=== PATIENT | female | born 1980 | race African-American/Black ===

== ENCOUNTER 2016-12-10 04:18 | Emergency (ER) | payer BC ==
--- NOTE | 2016-12-10 07:26 | ER Document Report ---
ED General - General Chief Complaint: Flu Symptoms Stated Complaint: POSSIBLE FLU SYMPTOMS TRAVEL OUTSIDE OF THE [place] IN LAST 30 DAYS: No - HPI Patient complains to provider of: cough dizziness feeling unwell Notes: Patient coming in for cough a dizziness feeling unwell muscle aches ongoing for the last week. Patient states he is a diabetic and also has ran out of her metformin. Patient denies any recent antibiotics denies any recent travel. Patient denies any sick contacts. Otherwise patient states that she's been drinking plenty water to stay hydrated. Patient states that she has been taking Mucinex at home for her treatment also states she has been using albuterol that she has a home for her cough - Related Data Allergies/Adverse Reactions: No Known Allergies Allergy (Verified 10/11/16 07:16) Past Medical History - Social History Smoking Status: Never Smoker Chew tobacco use (# tins/day): No Frequency of alcohol use: Occasional Drug Abuse: None Family History: Arthritis, CVA, DM, Hypertension, Malignancy Patient has suicidal ideation: No Patient has homicidal ideation: No - Past Medical History Cardiac Medical History: Reports: Hx Hypertension - NO MEDS Endocrine Medical History: Reports: Hx Diabetes Mellitus Type 2 - BS HIGH WHEN SHE GOT A STEROID SHOT Renal/ Medical History: Denies: Hx Peritoneal Dialysis Musculoskeltal Medical History: Reports Hx Musculoskeletal Deformity, Reports Hx Musculoskeletal Trauma Traumatic Medical History: Reports: Hx Fractures - Nose Surgical Hx: Negative - Immunizations Hx Diphtheria, Pertussis, Tetanus Vaccination: No Review of Systems - Review of Systems Constitutional: Malaise EENT: No symptoms reported Cardiovascular: No symptoms reported Respiratory: Cough Gastrointestinal: No symptoms reported Genitourinary: No symptoms reported Female Genitourinary: No symptoms reported Musculoskeletal: No symptoms reported Skin: No symptoms reported Hematologic/Lymphatic: No symptoms reported Neurological/Psychological: No symptoms reported -: Yes All other systems reviewed and negative Physical Exam - Vital signs Vitals: Temp Pulse Resp BP Pulse Ox 97.9 F 93 20 154/81 H 99 12/10/16 04:23 12/10/16 04:23 12/10/16 04:23 12/10/16 04:23 12/10/16 04:23 Interpretation: Normal - General General appearance: Appears well, Alert - HEENT Head: Normocephalic, Atraumatic Eyes: Normal Pupils: PERRL - Respiratory Respiratory status: No respiratory distress Chest status: Nontender Breath sounds: Normal Chest palpation: Normal - Cardiovascular Rhythm: Regular Heart sounds: Normal auscultation Murmur: No - Abdominal Inspection: Normal Distension: No distension Bowel sounds: Normal Tenderness: Nontender Organomegaly: No organomegaly - Back Back: Normal, Nontender - Extremities General upper extremity: Normal inspection, Nontender, Normal color, Normal ROM , Normal temperature General lower extremity: Normal inspection, Nontender, Normal color, Normal ROM , Normal temperature, Normal weight bearing. No: Ken's sign - Neurological Neuro grossly intact: Yes Cognition: Normal Orientation: AAOx4 [place] Coma Scale Eye Opening: Spontaneous Mimi Coma Scale Verbal: Oriented [place] Coma Scale Motor: Obeys Commands Mimi Coma Scale Total: 15 Speech: Normal Motor strength normal: LUE, RUE, LLE, RLE Sensory: Normal - Psychological Associated symptoms: Normal affect, Normal mood - Skin Skin Temperature: Warm Skin Moisture: Dry Skin Color: Normal Course - Re-evaluation Re-evalutation: 12/10/16 07:43 Patient symptoms are consistent with a viral illness. Patient will be given albuterol at her request and a refill of her metformin as that she is all. Patient was encouraged to follow-up with her primary care physician. Patient will be discharged home - Vital Signs Vital signs: Temp Pulse Resp BP Pulse Ox 97.9 F 93 20 154/81 H 99 12/10/16 04:23 12/10/16 04:23 12/10/16 04:23 12/10/16 04:23 12/10/16 04:23 Discharge - Discharge Clinical Impression: Diabetes, Viral syndrome Condition: Good Disposition: HOME, SELF-CARE Instructions: Viral Syndrome ([facility]) Additional Instructions: Please make sure that you're drinking plenty water to stay hydrated. Take your home medication as prescribed. He may use your albuterol at home 1 treatment are 2 puffs every 4 hours for any shortness of breath. Also prescribe you a cough medication. Discussed medication may also be available [id number]. Your symptoms will more likely linger for another 4-5 days. Please follow-up with your primary care physician or physicians provided or the clinic provided. Prescriptions: Albuterol Sulfate [Albuterol Sulfate 2.5mg/3 mL] 2.5 mg IH Q4 #30 ml Metformin HCl [Glucophage] 1,000 mg PO DAILY #30 tablet Forms: Return to Work
[2016-12-10 08:15] VITALS: BP 142/77
== END 2016-12-10 08:15 | disposition home or self-care (01) ==
LOC: ER 04:18
DX: E11.9 Type 2 diabetes mellitus without complications (principal); B34.9 Viral infection, unspecified; R05 Cough; R42 Dizziness and giddiness
CPT/HCPCS: 82962; 87804; 99283

== ENCOUNTER 2017-04-29 21:25 | Emergency (ER) | payer BC ==
--- NOTE | 2017-04-29 22:18 | ER Document Report ---
ED Medical Screen (RME) - General Chief Complaint: Rectal Bleeding Stated Complaint: RECTAL BLEEDING/ABDOMINAL PAIN Time Seen by Provider: 04/29/17 22:14 Mode of Arrival: Ambulatory Information source: Patient Notes: 37 yo female presents to ed for rectal bleeding that started tonight when she was getting ready to go to work. She states she was sitting on the bed putting on her socks and when she got up the bed was covered in blood. She went to the back and took her close follow-up to find it where she was bleeding and found that she was bleeding from her rectum. She states she does not have hemorrhoids but she has in the past and that even they did not bleed. He states since she has been here in the emergency room she developed a headache with abdominal cramping and nausea states she also feels cold. He states the abdominal cramping is getting a little better. I have greeted and performed a rapid initial assessment of this patient. A comprehensive ED assessment and evaluation of the patient, analysis of test results and completion of medical decision making process will be conducted by an additional ED providers. TRAVEL OUTSIDE OF THE [place] IN LAST 30 DAYS: No - Related Data Allergies/Adverse Reactions: No Known Allergies Allergy (Verified 10/11/16 07:16) Past Medical History - Past Medical History Cardiac Medical History: Reports: Hx Hypertension - NO MEDS Endocrine Medical History: Reports: Hx Diabetes Mellitus Type 2 - BS HIGH WHEN SHE GOT A STEROID SHOT Renal/ Medical History: Denies: Hx Peritoneal Dialysis Musculoskeltal Medical History: Reports Hx Musculoskeletal Deformity, Reports Hx Musculoskeletal Trauma Traumatic Medical History: Reports: Hx Fractures - Nose - Immunizations Hx Diphtheria, Pertussis, Tetanus Vaccination: No Physical Exam - Vital signs Vitals: Temp Pulse Resp BP Pulse Ox 99.0 F 82 18 167/92 H 98 04/29/17 21:31 04/29/17 21:31 04/29/17 21:31 04/29/17 21:31 04/29/17 21:31 Course - Vital Signs Vital signs: Temp Pulse Resp BP Pulse Ox 99.0 F 82 18 167/92 H 98 04/29/17 21:31 04/29/17 21:31 04/29/17 21:31 04/29/17 21:31 04/29/17 21:31
[2017-04-29 22:49] LABS: ABSOLUTE BASOPHILS # (AUTO) 0.1 10^3/uL (0.0-0.2); ABSOLUTE EOSINOPHILS # (AUTO) 0.1 10^3/uL (0.0-0.6); ABSOLUTE LYMPHOCYTES (AUTO) 2.3 10^3/uL (0.5-4.7); ABSOLUTE MONOCYTES (AUTO) 0.6 10^3/uL (0.1-1.4); ABSOLUTE NEUT (AUTO) 6.8 10^3/uL (1.7-8.2); EOSINOPHILS % (AUTO) 0.8 % (0-6); HEMATOCRIT 41.2 % (36.0-47.0); HEMOGLOBIN 13.5 g/dL (12.0-15.5); HGB HCT DIFFERENCE -0.7; LYMPHOCYTES % (AUTO) 23.3 % (13-45); MEAN CORPUSCULAR HEMOGLOBIN 30.4 pg (27.0-33.4); MEAN CORPUSCULAR HGB CONC 32.9 g/dL (32.0-36.0); MEAN CORPUSCULAR VOLUME 92 fl (80-97); MONOCYTES % (AUTO) 6.1 % (3-13); RED BLOOD COUNT 4.46 10^6/uL (3.72-5.28); RED CELL DISTRIBUTION WIDTH 13.6 % (11.5-14.0); SEGMENTED NEUTROPHILS % (AUTO) 68.8 % (42-78); WHITE BLOOD COUNT 9.8 10^3/uL (4.0-10.5)
[2017-04-29 23:07] LABS: ALANINE AMINOTRANSFERASE 25 U/L (9-52); ALBUMIN 4.1 g/dL (3.5-5.0); ALKALINE PHOSPHATASE 137 U/L (38-126); ANION GAP 10 (5-19); ASPARTATE AMINO TRANSFERASE 12 U/L (14-36); BILIRUBIN,DIRECT 0.3 mg/dL (0.0-0.4); BILIRUBIN,TOTAL 0.7 mg/dL (0.2-1.3); BLOOD UREA NITROGEN 12 mg/dL (7-20); CALCIUM 9.3 mg/dL (8.4-10.2); CARBON DIOXIDE 24 mmol/L (22-30); CHLORIDE 106 mmol/L (98-107); CREATININE RESULT 0.63 mg/dL (0.52-1.25); GLUCOSE 189 mg/dL (75-110); POTASSIUM 4.7 mmol/L (3.6-5.0); SODIUM 140.3 mmol/L (137-145); TOTAL PROTEIN 7.4 g/dL (6.3-8.2)
--- NOTE | 2017-04-30 06:18 | ER Document Report ---
ED GI Bleed / Rectal Pain - General Chief Complaint: Rectal Bleeding Stated Complaint: RECTAL BLEEDING/ABDOMINAL PAIN Time Seen by Provider: 04/29/17 22:14 Mode of Arrival: Ambulatory TRAVEL OUTSIDE OF THE [place] IN LAST 30 DAYS: No - HPI Patient complains to provider of: Bright red bld from rect. Onset: Yesterday Timing/Duration: Better Quality of pain: Cramping Severity of symptoms: Mild Pain Level: 1 Rectal bleeding: Bleeding w/o stool Associated symptoms: Abdominal pain Exacerbated by: Denies Relieved by: Denies Similar symptoms previously: No Recently seen / treated by doctor: No - Related Data Allergies/Adverse Reactions: No Known Allergies Allergy (Verified 10/11/16 07:16) Past Medical History - General Information source: Patient - Social History Smoking Status: Current Every Day Smoker Cigarette use (# per day): Yes - ppd Chew tobacco use (# tins/day): No Smoking Education Provided: Yes - less than 2 min Frequency of alcohol use: Rare Drug Abuse: None Lives with: Family Family History: Arthritis, CVA, DM, Hypertension, Malignancy Patient has suicidal ideation: No Patient has homicidal ideation: No - Past Medical History Cardiac Medical History: Reports: Hx Hypertension - NO MEDS Pulmonary Medical History: Reports: None EENT Medical History: Reports: None Neurological Medical History: Reports: None Endocrine Medical History: Reports: Hx Diabetes Mellitus Type 2 - BS HIGH WHEN SHE GOT A STEROID SHOT Renal/ Medical History: Reports: None Malignancy Medical History: Reports: None GI Medical History: Reports: None Musculoskeltal Medical History: Reports Hx Musculoskeletal Deformity, Reports Hx Musculoskeletal Trauma Skin Medical History: Reports None Psychiatric Medical History: Reports: None Traumatic Medical History: Reports: Hx Fractures - Nose Infectious Medical History: Reports: None Surgical Hx: Negative Past Surgical History: Reports: None - Immunizations Hx Diphtheria, Pertussis, Tetanus Vaccination: No Review of Systems - Review of Systems Constitutional: No symptoms reported EENT: No symptoms reported Cardiovascular: No symptoms reported Respiratory: No symptoms reported Gastrointestinal: Rectal bleeding, Last bowel movement - yesterday Genitourinary: No symptoms reported Female Genitourinary: No symptoms reported Musculoskeletal: No symptoms reported Skin: No symptoms reported Hematologic/Lymphatic: No symptoms reported Neurological/Psychological: No symptoms reported Physical Exam - Vital signs Vitals: Temp Pulse Resp BP Pulse Ox 99.0 F 82 18 167/92 H 98 04/29/17 21:31 04/29/17 21:31 04/29/17 21:31 04/29/17 21:31 04/29/17 21:31 Interpretation: Normal - General General appearance: Appears well, Alert - HEENT Head: Normocephalic, Atraumatic Eyes: Normal Pupils: PERRL - Respiratory Respiratory status: No respiratory distress Chest status: Nontender Breath sounds: Normal Chest palpation: Normal - Cardiovascular Rhythm: Regular Heart sounds: Normal auscultation Murmur: No - Abdominal Inspection: Normal Distension: No distension Bowel sounds: Normal Tenderness: Nontender Organomegaly: No organomegaly - Rectal Tenderness: Yes Stool: Heme negative Hemorrhoids: External - Back Back: Normal, Nontender - Extremities General upper extremity: Normal inspection, Nontender, Normal color, Normal ROM , Normal temperature General lower extremity: Normal inspection, Nontender, Normal color, Normal ROM , Normal temperature, Normal weight bearing. No: Ken's sign - Neurological Neuro grossly intact: Yes Cognition: Normal Orientation: AAOx4 [place] Coma Scale Eye Opening: Spontaneous Mimi Coma Scale Verbal: Oriented [place] Coma Scale Motor: Obeys Commands [place] Coma Scale Total: 15 Speech: Normal Motor strength normal: LUE, RUE, LLE, RLE Sensory: Normal - Psychological Associated symptoms: Normal affect, Normal mood - Skin Skin Temperature: Warm Skin Moisture: Dry Skin Color: Normal Course - Re-evaluation Re-evalutation: 04/30/17 06:27 Labs results with patient. Discussed need to return to ED if she has another episode where she states she is bleeding severely. Patient instructed to follow -up with gastroenterology by telephone today to schedule follow-up appointment for further evaluation. - Vital Signs Vital signs: Temp Pulse Resp BP Pulse Ox 99.0 F 81 18 153/96 H 100 04/29/17 21:31 04/29/17 22:16 04/29/17 22:16 04/29/17 22:16 04/29/17 22:16 - Laboratory Result Diagrams: 04/29/17 22:20 04/29/17 22:20 Laboratory results interpreted by me: 04/29/17 22:20 Glucose 189 H AST 12 L Alkaline Phosphatase 137 H Discharge - Discharge Clinical Impression: Rectal bleed Condition: Stable Disposition: HOME, SELF-CARE Instructions: Family Physicians / Practices Additional Instructions: Rectal Bleeding, Unclear Cause No definite cause has been found for the rectal bleeding you have experienced. Among the possible causes are internal or external hemorrhoids ( internal hemorrhoids can't be felt on the outside), an anal fissure (a crack at the anal ring), infections or inflammatory diseases of the colon, tumors or polyps, or diverticula (diverticula are outpouchings from the colon wall). To establish a cause for your bleeding (or at least make certain there is no serious problem such as a tumor), further evaluation will be necessary. This may include special X-rays, or passage of a scope up into the colon. Be sure to keep your follow-up appointment. Should you develop brisk bleeding, abdominal pain, fever, lightheadedness, or fever, call the doctor or return at once. Acetaminophen Acetaminophen may be taken for pain relief or fever control. It's much safer than aspirin, offering a wider range of "safe" dosages. It is safe during . Some brand names are Tylenol, Panadol, Datril, Anacin 3, Tempra, and Liquiprin. Acetaminophen can be repeated every four hours. The following are maximum recommended dosages: WEIGHT Dose Drops Elixir Chewable( 80mg) (LBS.) drprs=droppers tsp=teaspoon 6 40 mg .4 ml (1/2) 6-11 80 mg .8 ml (full) 1/2 tsp 1 tab 12-16 120 mg 1 1/2 drprs 3/4 tsp 1 1/2 tabs 17-23 160 mg 2 drprs 1 tsp 2 tabs 24-30 240 mg 3 drprs 1 1/2 tsp 3 tabs 30-35 320 mg 2 tsp 4 tabs 36-41 360 mg 2 1/4 tsp 4 1 /2 tabs 42-47 400 mg 2 1/2 tsp 5 tabs 48-53 480 mg 3 tsp 6 tabs 54-59 520 mg 3 1/4 tsp 6 1 /2 tabs 60-64 560 mg 3 1/2 tsp 7 tabs 65-70 600 mg 3 3/4 tsp 7 1 /2 tabs 71-76 640 mg 4 tsp 8 tabs 77-82 720 mg 4 1/2 tsp 9 tabs 83-88 800 mg 5 tsp 10 tabs >89 pounds or adults 650 mg to 900 mg Acetaminophen can be repeated every four hours. Maximum daily dose not to exceed 4000 mg. These maximum recommended dosages are slightly higher than the dosages written on the product container, but these dosages are very safe and well below the toxic dosage for acetaminophen. Please follow-up by telephone with group leader semiconductor processing, Dr. Whitlock today to schedule follow up appointment to determine the cause for your bleeding. Your vital signs at your CBC or normal at this time. Your stool for occult blood was negative. FOLLOW-UP CARE: If you have been referred to a physician for follow-up care, call the physician s office for an appointment as you were instructed or within the next two days. If you experience worsening or a significant change in your symptoms, notify the physician immediately or return to the Emergency Department at any time for re-evaluation. Forms: Elevated Blood Pressure, Return to Work, Smoking Cessation Education Referrals: [facility] [Provider Group] - Follow up as needed PITA WHITLOCK MD [ACTIVE STAFF] - 04/30/17
[2017-04-30] MEDS ORDERED: ACETAMINOPHEN 325 MG TABLET PO ONE (06:30)
[2017-04-30 07:02] VITALS: BP 133/76
== END 2017-04-30 07:02 | disposition home or self-care (01) ==
LOC: ER 21:25
DX: K62.5 Hemorrhage of anus and rectum (principal); R10.9 Unspecified abdominal pain; F17.210 Nicotine dependence, cigarettes, uncomplicated; K64.4 Residual hemorrhoidal skin tags
CPT/HCPCS: 36415; 80053; 82272; 84703; 85025; 86850; 86870; 86900; 86901; 99283

== ENCOUNTER 2017-10-03 04:41 | Emergency (ER) | payer BC ==
[2017-10-03 05:04] VITALS: BP 153/93
[2017-10-03] MEDS ORDERED: NORMAL SALINE 1000 ML 1,000 ML IV ONE (06:06)
[2017-10-03 06:21] LABS: APPEARANCE,URINE CLEAR; BILIRUBIN,URINE NEGATIVE (NEGATIVE); GLUCOSE, URINE >=500 mg/dL (NEGATIVE); KETONES,URINE NEGATIVE (NEGATIVE); LEUKOCYTE ESTERASE,URINE NEGATIVE (NEGATIVE); NITRITE,URINE NEGATIVE (NEGATIVE); PROTEIN,URINE NEGATIVE (NEGATIVE); URINE SPECIFIC GRAVITY 1.016; UROBILINOGEN,URINE NEGATIVE mg/dL (<2.0)
--- NOTE | 2017-10-03 06:24 | ER Document Report ---
ED General - General Chief Complaint: Abdominal Pain Stated Complaint: DIZZINESS,NAUSEA Time Seen by Provider: 10/03/17 06:04 Notes: 37 years old female presents today with multiple complaints, starting with dysuria, when she wipes notes some blood in the toilet tissue, after urinating. She also have constipated for a long time, general malaise, headache which was relieved by 2 doses of Tylenol. Denies any earache sore throat but was congested and cough. Nauseous but no vomiting. No diarrhea TRAVEL OUTSIDE OF THE [place] IN LAST 30 DAYS: No - Related Data Allergies/Adverse Reactions: No Known Allergies Allergy (Verified 10/11/16 07:16) Home Medications: Current Home Medications Metformin HCl [Metformin HCl ER] 500 mg PO BID 10/03/17 [History] Past Medical History - Social History Smoking Status: Current Every Day Smoker Frequency of alcohol use: None Drug Abuse: None Family History: Arthritis, CVA, DM, Hypertension, Malignancy Patient has suicidal ideation: No Patient has homicidal ideation: No - Past Medical History Cardiac Medical History: Reports: Hx Hypertension - NO MEDS Endocrine Medical History: Reports: Hx Diabetes Mellitus Type 2 - BS HIGH WHEN SHE GOT A STEROID SHOT Renal/ Medical History: Denies: Hx Peritoneal Dialysis Musculoskeltal Medical History: Reports Hx Musculoskeletal Deformity, Reports Hx Musculoskeletal Trauma Traumatic Medical History: Reports: Hx Fractures - Nose - Immunizations Hx Diphtheria, Pertussis, Tetanus Vaccination: No Review of Systems - Review of Systems Notes: REVIEW OF SYSTEMS: CONSTITUTIONAL : Denies fever, chills, or sweats. Denies recent illness. EENT: Denies eye, ear, throat, or mouth pain or symptoms. Denies nasal or sinus congestion or discharge. Denies throat, tongue, or mouth swelling or difficulty swallowing. CARDIOVASCULAR: Denies chest pain. Denies palpitations or racing or irregular heart beat. Denies ankle edema. RESPIRATORY: Denies cough, cold, or chest congestion. Denies shortness of breath, difficulty breathing, or wheezing. GASTROINTESTINAL: Denies abdominal pain or distention. Denies nausea, vomiting , or diarrhea. Denies blood in vomitus, stools, or per rectum. Denies black, tarry stools. Denies constipation. GENITOURINARY: Denies difficulty urinating, painful urination, burning, frequency, blood in urine, or discharge. FEMALE GENITOURINARY: Denies vaginal bleeding, heavy or abnormal periods, irregular periods. Denies vaginal discharge or odor. MUSCULOSKELETAL: Denies back or neck pain or stiffness. Denies joint pain or swelling. SKIN: Denies rash, lesions or sores. HEMATOLOGIC : Denies easy bruising or bleeding. LYMPHATIC: Denies swollen, enlarged glands. NEUROLOGICAL: Denies confusion or altered mental status. Denies passing out or loss of consciousness. Denies dizziness or lightheadedness. Denies headache. Denies weakness or paralysis or loss of use of either side. Denies problems with gait or speech. Denies sensory loss, numbness, or tingling. Denies seizures. PSYCHIATRIC: Denies anxiety or stress. Denies depression, suicidal ideation, or homicidal ideation. ALL OTHER SYSTEMS REVIEWED AND NEGATIVE. PHYSICAL EXAMINATION: GENERAL: Well-appearing, well-nourished and in no acute distress. HEAD: Atraumatic, normocephalic. EYES: Pupils equal round and reactive to light, extraocular movements intact, conjunctiva are normal. ENT: Nares patent, oropharynx clear without exudates. Moist mucous membranes. NECK: Normal range of motion, supple without lymphadenopathy LUNGS: Breath sounds clear to auscultation bilaterally and equal. No wheezes rales or rhonchi. HEART: Regular rate and rhythm without murmurs ABDOMEN: Soft, nontender, nondistended abdomen. No guarding, no rebound. No masses appreciated. Female : deferred Musculoskeletal: Normal range of motion, no pitting or edema. No cyanosis. NEUROLOGICAL: Cranial nerves grossly intact. Normal speech, normal gait. Normal sensory, motor exams PSYCH: Normal mood, normal affect. SKIN: Warm, Dry, normal turgor, no rashes or lesions noted. Dictation was performed using [employer] voice recognition software Physical Exam - Vital signs Vitals: Temp Pulse Resp BP Pulse Ox 98.6 F 87 17 153/93 H 98 10/03/17 05:02 10/03/17 05:02 10/03/17 05:02 10/03/17 05:02 10/03/17 05:02 Course - Re-evaluation Re-evalutation: 10/03/17 07:13 KUB shows large amount of fecal material, urine was positive for moderate amount of blood, urinary tract infection. This was explained to the patient. Patient was hydrated with IV normal saline 2. - Vital Signs Vital signs: Temp Pulse Resp BP Pulse Ox 98.6 F 87 17 153/93 H 98 10/03/17 05:02 10/03/17 05:02 10/03/17 05:02 10/03/17 05:02 10/03/17 05:02 - Laboratory Result Diagrams: 10/03/17 06:20 10/03/17 06:20 Laboratory results interpreted by me: 10/03/17 10/03/17 10/03/17 05:02 06:00 06:20 Sodium 136.4 L Glucose 247 H POC Glucose 260 H Alkaline Phosphatase 139 H Urine Glucose (UA) >=500 H Urine Blood MODERATE H Discharge - Discharge Clinical Impression: Dehydration UTI (urinary tract infection) Qualifiers: Urinary tract infection type: acute cystitis Hematuria presence: with hematuria Qualified Code(s): N30.01 - Acute cystitis with hematuria Constipation Qualifiers: Constipation type: slow transit constipation Qualified Code(s): K59.01 - Slow transit constipation Condition: Fair Disposition: HOME, SELF-CARE Instructions: Urinary Tract Infection ([facility]), Abdominal Pain ([facility]), Constipation ([facility]) Prescriptions: Ciprofloxacin HCl [Cipro 500 mg Tablet] 500 mg PO BID #20 tablet Lactulose 20 gm PO BID #120 ml
[2017-10-03 06:28] LABS: ABSOLUTE EOSINOPHILS # (AUTO) 0.1 10^3/uL (0.0-0.6); ABSOLUTE LYMPHOCYTES (AUTO) 3.4 10^3/uL (0.5-4.7); ABSOLUTE MONOCYTES (AUTO) 0.6 10^3/uL (0.1-1.4); BASOPHILS % (AUTO) 0.6 % (0-2); EOSINOPHILS % (AUTO) 1.6 % (0-6); HEMATOCRIT 41.1 % (36.0-47.0); HEMOGLOBIN 14.4 g/dL (12.0-15.5); HGB HCT DIFFERENCE 2.1; LYMPHOCYTES % (AUTO) 41.7 % (13-45); MEAN CORPUSCULAR HEMOGLOBIN 31.4 pg (27.0-33.4); MEAN CORPUSCULAR VOLUME 90 fl (80-97); MONOCYTES % (AUTO) 7.7 % (3-13); RED BLOOD COUNT 4.58 10^6/uL (3.72-5.28); RED CELL DISTRIBUTION WIDTH 13.2 % (11.5-14.0); SEGMENTED NEUTROPHILS % (AUTO) 48.4 % (42-78); WHITE BLOOD COUNT 8.2 10^3/uL (4.0-10.5)
[2017-10-03 06:39] LABS: ALANINE AMINOTRANSFERASE 21 U/L (9-52); ALBUMIN 4.3 g/dL (3.5-5.0); ALKALINE PHOSPHATASE 139 U/L (38-126); ANION GAP 9 (5-19); ASPARTATE AMINO TRANSFERASE 14 U/L (14-36); BILIRUBIN,DIRECT 0.2 mg/dL (0.0-0.4); BILIRUBIN,TOTAL 0.8 mg/dL (0.2-1.3); BLOOD UREA NITROGEN 8 mg/dL (7-20); CALCIUM 9.8 mg/dL (8.4-10.2); CARBON DIOXIDE 26 mmol/L (22-30); CHLORIDE 101 mmol/L (98-107); CREATININE RESULT 0.67 mg/dL (0.52-1.25); GLUCOSE 247 mg/dL (75-110); POTASSIUM 4.1 mmol/L (3.6-5.0); SODIUM 136.4 mmol/L (137-145); TOTAL PROTEIN 7.6 g/dL (6.3-8.2)
[2017-10-03] MEDS ORDERED: CIPROFLOXACIN HCL 500 MG TABLET PO ONE (07:12)
--- NOTE | 2017-10-03 07:26 | RADIOLOGY REPORT (SQ) ---
EXAM DESCRIPTION: KUB/ABDOMEN (SINGLE VIEW) CLINICAL HISTORY: 37 years, Female, abdominal pain COMPARISON: CTA chest, March 14, 2016. FINDINGS: Intestinal gas pattern is normal. No dilated bowel. No suspicious calcification. Transitional lumbosacral vertebral body. IMPRESSION: No acute findings. 2011 [email or web address]- All Rights Reserved
[2017-10-03 08:37] LABS: APPEARANCE,URINE CLEAR; BILIRUBIN,URINE NEGATIVE (NEGATIVE); GLUCOSE, URINE 50 mg/dL (NEGATIVE); KETONES,URINE NEGATIVE (NEGATIVE); LEUKOCYTE ESTERASE,URINE NEGATIVE (NEGATIVE); NITRITE,URINE NEGATIVE (NEGATIVE); PROTEIN,URINE NEGATIVE (NEGATIVE); UROBILINOGEN,URINE NEGATIVE mg/dL (<2.0)
== END 2017-10-03 09:05 | disposition home or self-care (01) ==
LOC: ER 04:41
DX: K59.01 Slow transit constipation (principal); N30.01 Acute cystitis with hematuria; E86.0 Dehydration; R30.0 Dysuria; R53.81 Other malaise; R51 Headache; R05 Cough; R11.0 Nausea; I10 Essential (primary) hypertension; F17.200 Nicotine dependence, unspecified, uncomplicated
CPT/HCPCS: 99284; 96360; 36415; 82962; 85025; 81025; 80053; 81001; 74000; J7030

== ENCOUNTER 2017-11-11 08:32 | Emergency (ER) | payer BC ==
--- NOTE | 2017-11-11 09:38 | ER Document Report ---
ED General - General Mode of Arrival: Ambulatory Information source: Patient TRAVEL OUTSIDE OF THE [place] IN LAST 30 DAYS: No <BEBETO AMATO - Last Filed: 11/11/17 10:28> <MARYLUBRENDON Seals - Last Filed: 11/12/17 20:34> - General Chief Complaint: Shortness Of Breath Stated Complaint: SHORTNESS OF BREATH Time Seen by Provider: 11/11/17 09:22 Notes: Patient is a 37 year old female with a history of Type 2 Diabetes presents to the emergency department complaining of multiple symptoms including fatigue, shortness of breath, an intermittent sharp abdominal pain and urinary frequency onset 5 days ago. Patient states that she has been extremely fatigued and has been unable to get out of bed or stay awake. Patient also states she began to have a sharp left shoulder pain 5 days ago. Patient states she is unsure if she could have caused injury to her shoulder while at work. Patient denies cough, fevers, diarrhea, vomiting, urinary burning, or sore throat. (BEBETO AMATO) - Related Data Allergies/Adverse Reactions: No Known Allergies Allergy (Verified 11/11/17 08:36) Past Medical History - General Information source: Patient - Social History Smoking Status: Unknown if Ever Smoked Occupation: [employer] Family History: Arthritis, CVA, DM, Hypertension, Malignancy - Past Medical History Cardiac Medical History: Reports: Hx Hypertension - NO MEDS Endocrine Medical History: Reports: Hx Diabetes Mellitus Type 2 - BS HIGH WHEN SHE GOT A STEROID SHOT Musculoskeltal Medical History: Reports Hx Musculoskeletal Deformity, Reports Hx Musculoskeletal Trauma Traumatic Medical History: Reports: Hx Fractures - Nose - Immunizations Hx Diphtheria, Pertussis, Tetanus Vaccination: No <BEBETO AMATO - Last Filed: 11/11/17 10:28> Review of Systems - Review of Systems Constitutional: See HPI, Other - Fatigue EENT: No symptoms reported Cardiovascular: No symptoms reported Respiratory: No symptoms reported Gastrointestinal: See HPI, Abdominal pain Genitourinary: No symptoms reported Female Genitourinary: No symptoms reported Musculoskeletal: No symptoms reported Skin: No symptoms reported Hematologic/Lymphatic: No symptoms reported Neurological/Psychological: No symptoms reported -: Yes All other systems reviewed and negative <BEBETO AMATO - Last Filed: 11/11/17 10:28> Physical Exam <BEBETO AMATO - Last Filed: 11/11/17 10:28> <BRENDON VALERO Arnel - Last Filed: 11/12/17 20:34> - Vital signs Vitals: Temp Pulse Resp BP Pulse Ox 97.8 F 97 16 139/79 H 97 11/11/17 08:37 11/11/17 08:37 11/11/17 08:37 11/11/17 08:37 11/11/17 08:37 - Notes Notes: GENERAL: Alert, interacts well. No acute distress. HEAD: Normocephalic, atraumatic. EYES: Pupils equal, round, and reactive to light. Extraocular movements intact. ENT: Oral mucosa moist, tongue midline. NECK: Full range of motion. Supple. Trachea midline. LUNGS: Clear to auscultation bilaterally, no wheezes, rales, or rhonchi. No respiratory distress. HEART: Regular rate and rhythm. No murmurs, gallops, or rubs. ABDOMEN: Soft, non-tender. Non-distended. Bowel sounds present in all 4 quadrants. EXTREMITIES: Moves all 4 extremities spontaneously. NEUROLOGICAL: Alert and oriented x3. Normal speech. PSYCH: Normal affect, normal mood. SKIN: Warm, dry, normal turgor. No rashes or lesions noted. (BEBETO AMAOT) Course - Laboratory Result Diagrams: 11/11/17 10:10 11/11/17 10:10 <BEBETO AMATO - Last Filed: 11/11/17 10:28> - Laboratory Result Diagrams: 11/11/17 10:10 11/11/17 10:10 - EKG Interpretation by Tn EKG shows normal: Sinus rhythm Rate: Normal Rhythm: NSR <BRENDON VALERO Arnel - Last Filed: 11/12/17 20:34> - Re-evaluation Re-evalutation: 11/11/17 09:38 DDX: Viral syndrome, influenza, upper respiratory infection, uterine abnormality, hypothyroidism, dehydration, NM Patient known diabetic on metformin with several days of fatigue and absence of vomiting or diarrhea that she has been having polyuria. She also had an episode of shoulder and scapular pain while driving from work last Saturday. We will also screen troponin and EKG. HEART score patient is low risk chest pain. we will also check basic lab work to ensure no acute abnormalities 11/11/17 09:40 11/11/17 11:16 All patient's labs within normal limits are within patient's baseline. She does have elevated blood glucose and discussed with patient need for better glycemic control including taking log over the next week and follow with her primary care physician for consideration of medication changes. Will provide a work excuse for 2 days encourage patient to take oral fluids encouraged using Tylenol or ibuprofen and reevaluation in the next 2-3 days if symptoms are not improving 11/11/17 11:33 TSH and UA no concerning findings patient will be discharged at this time (BRENDON VALERO) - Vital Signs Vital signs: Temp Pulse Resp BP Pulse Ox 98.5 F 97 26 H 115/76 98 11/11/17 12:13 11/11/17 08:37 11/11/17 12:01 11/11/17 12:00 11/11/17 12:01 - Laboratory Laboratory results interpreted by sd: 11/11/17 11/11/17 11/11/17 10:10 10:10 11:11 WBC 11.0 H Sodium 136.8 L Glucose 342 H Calcium 10.3 H Alkaline Phosphatase 128 H Urine Glucose (UA) >=500 H Urine Blood SMALL H - Diagnostic Test Radiology results interpreted by sd: 11/11/17 10:42 No acute disease on chest x-ray (BRENDON VALERO) Discharge <BEBETO AMATO - Last Filed: 11/11/17 10:28> <BRENDON VALERO - Last Filed: 11/12/17 20:34> - Discharge Condition: Good Disposition: HOME, SELF-CARE Additional Instructions: Please use her glucometer and provide a log to your family doctor within 1 week for likely adjustments to your metformin. Take Tylenol for your fatigue drink plenty of fluids and follow-up in the next 2-3 days with medical provider if symptoms are not improving. In the meantime start to take 750 mg of metformin twice a day instead of 500 mg twice a day. Forms: Return to Work Scribe Documentation - Scribe Written by Aura:: Aura Gambino, 11/11/2017 09:54 acting as scribe for :: Marylu <BEBETO AMATO - Last Filed: 11/11/17 10:28>
[2017-11-11] MEDS ORDERED: NORMAL SALINE 1000 ML 1,000 ML IV ONE (09:40)
[2017-11-11 10:23] LABS: ABSOLUTE BASOPHILS # (AUTO) 0.1 10^3/uL (0.0-0.2); ABSOLUTE EOSINOPHILS # (AUTO) 0.1 10^3/uL (0.0-0.6); ABSOLUTE LYMPHOCYTES (AUTO) 3.5 10^3/uL (0.5-4.7); ABSOLUTE MONOCYTES (AUTO) 0.7 10^3/uL (0.1-1.4); ABSOLUTE NEUT (AUTO) 6.6 10^3/uL (1.7-8.2); BASOPHILS % (AUTO) 1.1 % (0-2); EOSINOPHILS % (AUTO) 0.9 % (0-6); HEMATOCRIT 42.6 % (36.0-47.0); HEMOGLOBIN 14.2 g/dL (12.0-15.5); LYMPHOCYTES % (AUTO) 31.6 % (13-45); MEAN CORPUSCULAR HEMOGLOBIN 30.2 pg (27.0-33.4); MEAN CORPUSCULAR HGB CONC 33.3 g/dL (32.0-36.0); MEAN CORPUSCULAR VOLUME 91 fl (80-97); MONOCYTES % (AUTO) 6.4 % (3-13); PLATELET COUNT 215 10^3/uL (150-450); RED CELL DISTRIBUTION WIDTH 13.8 % (11.5-14.0); TOTAL CELLS COUNTED % (AUTO) 100 %
--- NOTE | 2017-11-11 10:31 | RADIOLOGY REPORT (SQ) ---
EXAM DESCRIPTION: CHEST SINGLE VIEW COMPLETED DATE/TIME: 11/11/2017 10:19 am REASON FOR STUDY: med clearance COMPARISON: 03/14/2016 EXAM PARAMETERS: NUMBER OF VIEWS: One view. TECHNIQUE: Single frontal radiographic view of the chest acquired. RADIATION DOSE: NA LIMITATIONS: None. FINDINGS: LUNGS AND PLEURA: No opacities, masses or pneumothorax. No pleural effusion. MEDIASTINUM AND HILAR STRUCTURES: No masses. Contour normal. HEART AND VASCULAR STRUCTURES: Heart normal in size. Normal vasculature. BONES: No acute findings. HARDWARE: None in the chest. OTHER: No other significant finding. IMPRESSION: NO ACUTE RADIOGRAPHIC FINDING IN THE CHEST. TECHNICAL DOCUMENTATION: JOB ID: [id number] [employer]- All Rights Reserved
[2017-11-11 10:46] LABS: ALANINE AMINOTRANSFERASE 21 U/L (9-52); ALBUMIN 4.2 g/dL (3.5-5.0); ALKALINE PHOSPHATASE 128 U/L (38-126); ANION GAP 10 (5-19); ASPARTATE AMINO TRANSFERASE 17 U/L (14-36); BILIRUBIN,DIRECT 0.3 mg/dL (0.0-0.4); BILIRUBIN,TOTAL 0.6 mg/dL (0.2-1.3); BLOOD UREA NITROGEN 12 mg/dL (7-20); CALCIUM 10.3 mg/dL (8.4-10.2); CARBON DIOXIDE 24 mmol/L (22-30); CHLORIDE 103 mmol/L (98-107); GLUCOSE 342 mg/dL (75-110); POTASSIUM 4.5 mmol/L (3.6-5.0); SODIUM 136.8 mmol/L (137-145); TOTAL PROTEIN 6.8 g/dL (6.3-8.2)
[2017-11-11 11:29] LABS: APPEARANCE,URINE CLEAR; BILIRUBIN,URINE NEGATIVE (NEGATIVE); COLOR,URINE YELLOW; GLUCOSE, URINE >=500 mg/dL (NEGATIVE); KETONES,URINE NEGATIVE (NEGATIVE); LEUKOCYTE ESTERASE,URINE NEGATIVE (NEGATIVE); NITRITE,URINE NEGATIVE (NEGATIVE); PROTEIN,URINE NEGATIVE (NEGATIVE); URINE SPECIFIC GRAVITY 1.032; UROBILINOGEN,URINE NEGATIVE mg/dL (<2.0)
[2017-11-11 12:12] VITALS: BP 115/76
--- NOTE | 2017-11-11 12:57 | EKG REPORT ---
SEVERITY:- NORMAL ECG - SINUS RHYTHM : Confirmed by: Artur Lopez MD 11-Nov-2017 12:56:39
== END 2017-11-11 12:13 | disposition home or self-care (01) ==
LOC: ER 08:32
DX: E11.65 Type 2 diabetes mellitus with hyperglycemia (principal); Z79.84 Long term (current) use of oral hypoglycemic drugs; R06.02 Shortness of breath; R53.83 Other fatigue; R10.9 Unspecified abdominal pain; R35.0 Frequency of micturition; R35.8 Other polyuria; M25.512 Pain in left shoulder; I10 Essential (primary) hypertension; M25.519 Pain in unspecified shoulder
CPT/HCPCS: 93005; 99285; 96360; 36415; 84443; 84703; 85025; 80053; 81001; 84484; 71045; 93010; J7030

== ENCOUNTER 2018-03-14 12:19 | Emergency (ER) | payer BC ==
[2018-03-14 12:28] VITALS: BP 154/88
[2018-03-14] MEDS ORDERED: IBUPROFEN 800 MG TABLET PO ONE (13:19)
--- NOTE | 2018-03-14 13:34 | ER Document Report ---
HPI - HPI Patient complains to provider of: left knee pain Onset: Other Onset/Duration: Persistent Quality of pain: Sharp, Throbbing Pain Level: 4 Context: Patient presents emergency department with complaints of left anterior knee pain. Patient reports approximately 1 month ago she hit her knee on a chair and it hurt so bad she blacked out. She reports as time went on the knee got better. She reports that lately she has been walking a lot up to 14 miles a day and now her knee is hurting. Today she reports she was unable to bend her knee. 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 She points to one area of the knee stating pain with movement. She denies injury recently. Denies other symptoms such as fever vomiting diarrhea. Denies history of surgery to the knee. Associated Symptoms: None Exacerbated by: Movement, Walking Relieved by: Denies Similar symptoms previously: Yes Recently seen / treated by doctor: No - CONSTITUTIONAL Constitutional: DENIES: Fever, Chills - REPRODUCTIVE Reproductive: DENIES: : - MUSCULOSKELETAL Musculoskeletal: REPORTS: Extremity pain - left knee Past Medical History - General Information source: Patient - Social History Smoking Status: Unknown if Ever Smoked Chew tobacco use (# tins/day): No Frequency of alcohol use: None Drug Abuse: None Occupation: [employer] Lives with: Family Family History: Arthritis, CVA, DM, Hypertension, Malignancy Patient has suicidal ideation: No Patient has homicidal ideation: No - Past Medical History Cardiac Medical History: Reports: Hx Hypertension - NO MEDS Endocrine Medical History: Reports: Hx Diabetes Mellitus Type 2 - BS HIGH WHEN SHE GOT A STEROID SHOT Renal/ Medical History: Denies: Hx Peritoneal Dialysis Musculoskeltal Medical History: Reports Hx Musculoskeletal Deformity, Reports Hx Musculoskeletal Trauma Traumatic Medical History: Reports: Hx Fractures - Nose - Immunizations Hx Diphtheria, Pertussis, Tetanus Vaccination: No Vertical Provider Document - CONSTITUTIONAL Agree With Documented VS: Yes Exam Limitations: No Limitations General Appearance: WD/WN, Mild Distress - winces with knee flexion - INFECTION CONTROL TRAVEL OUTSIDE OF THE [place] IN LAST 30 DAYS: No - HEENT HEENT: Atraumatic, Normocephalic - NECK Neck: Supple - RESPIRATORY Respiratory: Breath Sounds Normal, No Respiratory Distress - CARDIOVASCULAR Cardiovascular: Regular Rate - MUSCULOSKELETAL/EXTREMETIES Musculoskeletal/Extremeties: Tender - left anterior patella ttp, no obvious swelling no obvious deformity no erythema no calf pain negative Homans patient complains of pain with flexion of left knee - NEURO Level of Consciousness: Awake, Alert, Appropriate Motor/Sensory: No Motor Deficit - DERM Integumentary: Warm, Dry Adult Front & Back Diagram: 1 - reports local pain ttp and with flexion Course - Re-evaluation Re-evalutation: 03/14/18 15:55 Patient's x-ray was negative. She was instructed on rest ice elevate crutches were provided for comfort. She was instructed to follow-up with her primary care provider and orthopedics for continued pain. She was also instructed to rest no14 mile walks until follow up - Vital Signs Vital signs: Temp Pulse Resp BP Pulse Ox 98.6 F 92 16 154/88 H 97 03/14/18 12:27 03/14/18 12:27 03/14/18 12:27 03/14/18 12:27 03/14/18 12:27 - Diagnostic Test Radiology reviewed: Image reviewed, Reports reviewed - Diagnostic report text EXAM DESCRIPTION: KNEE LEFT 3 VIEWS COMPLETED DATE/TIME: 2017 1:41 pm REASON FOR STUDY: patella ttp, hx of direct hit COMPARISON: None. NUMBER OF VIEWS: Three views. TECHNIQUE: AP, lateral, and sunrise patella radiographic images acquired of the left knee. LIMITATIONS: None. FINDINGS: MINERALIZATION: Normal. BONES: No acute fracture or dislocation. No worrisome bone lesions. JOINT: No effusion. SOFT TISSUES: No soft tissue swelling. No radio-opaque foreign body. OTHER: No other significant finding. IMPRESSION: NEGATIVE STUDY OF THE LEFT KNEE. NO RADIOGRAPHIC EVIDENCE OF ACUTE INJURY Discharge - Discharge Clinical Impression: Left knee pain Qualifiers: Chronicity: acute Qualified Code(s): M25.562 - Pain in left knee Condition: Stable Disposition: HOME, SELF-CARE Instructions: Use of Crutches ([facility]), Ice & Elevation ([facility]) Additional Instructions: *You have been evaluated for an knee pain *Rest/Ice/Elevate your knee *Use your crutches for comfort *Follow up with orthopedics for continued pain call for an appointment *Take ibuprofen or Tylenol for pain as indicated *Return to ED for worsening condition, changes, needs Forms: Return to Work Referrals: [facility] [Provider Group] [facility] [Provider Group]
--- NOTE | 2018-03-14 13:49 | RADIOLOGY REPORT (SQ) ---
EXAM DESCRIPTION: KNEE LEFT 3 VIEWS COMPLETED DATE/TIME: 03/14/2018 1:41 pm REASON FOR STUDY: patella ttp, hx of direct hit COMPARISON: None. NUMBER OF VIEWS: Three views. TECHNIQUE: AP, lateral, and sunrise patella radiographic images acquired of the left knee. LIMITATIONS: None. FINDINGS: MINERALIZATION: Normal. BONES: No acute fracture or dislocation. No worrisome bone lesions. JOINT: No effusion. SOFT TISSUES: No soft tissue swelling. No radio-opaque foreign body. OTHER: No other significant finding. IMPRESSION: NEGATIVE STUDY OF THE LEFT KNEE. NO RADIOGRAPHIC EVIDENCE OF ACUTE INJURY. TECHNICAL DOCUMENTATION: JOB ID: [id number] [employer]- All Rights Reserved Reading location - IP/workstation name: [email or web address]
== END 2018-03-14 14:13 | disposition home or self-care (01) ==
LOC: ER 12:19
DX: M25.562 Pain in left knee (principal); X50.3XXA Overexertion from repetitive movements, initial encounter; I10 Essential (primary) hypertension; E11.9 Type 2 diabetes mellitus without complications
CPT/HCPCS: 99283

== ENCOUNTER 2018-04-03 18:41 | Emergency (ER) | payer BC ==
[2018-04-03] MEDS ORDERED: ONDANSETRON 4 MG TAB.RAPDIS PO ONE (19:45)
--- NOTE | 2018-04-03 19:46 | ER Document Report ---
ED Medical Screen (RME) - General Chief Complaint: Abdominal Pain Stated Complaint: VOMITING, DIZZY, SIDE PAIN Time Seen by Provider: 04/03/18 19:44 Notes: The patient is a 38-year-old female who presents with right upper quadrant pain , nausea and vomiting 5 times. PE: RUQ tenderness, normal bowel sounds I have greeted and performed a rapid initial assessment of this patient. A comprehensive ED assessment and evaluation of the patient, analysis of test results and completion of the medical decision making process will be conducted by additional ED providers. TRAVEL OUTSIDE OF THE [place] IN LAST 30 DAYS: No - Related Data Allergies/Adverse Reactions: No Known Allergies Allergy (Verified 03/14/18 13:12) Past Medical History - Social History Chew tobacco use (# tins/day): No Frequency of alcohol use: Rare Drug Abuse: None - Past Medical History Cardiac Medical History: Reports: Hx Hypertension - NO MEDS Endocrine Medical History: Reports: Hx Diabetes Mellitus Type 2 - BS HIGH WHEN SHE GOT A STEROID SHOT Renal/ Medical History: Denies: Hx Peritoneal Dialysis Musculoskeltal Medical History: Reports Hx Musculoskeletal Deformity, Reports Hx Musculoskeletal Trauma Traumatic Medical History: Reports: Hx Fractures - Nose - Immunizations Hx Diphtheria, Pertussis, Tetanus Vaccination: No Physical Exam - Vital signs Vitals: Temp Pulse Resp BP Pulse Ox 98.3 F 82 16 159/94 H 98 04/03/18 18:45 04/03/18 18:45 04/03/18 18:45 04/03/18 18:45 04/03/18 18:45 Course - Vital Signs Vital signs: Temp Pulse Resp BP Pulse Ox 98.3 F 82 16 159/94 H 98 04/03/18 18:45 04/03/18 18:45 04/03/18 18:45 04/03/18 18:45 04/03/18 18:45
[2018-04-03 19:53] LABS: APPEARANCE,URINE CLEAR; BILIRUBIN,URINE NEGATIVE (NEGATIVE); COLOR,URINE YELLOW; GLUCOSE, URINE NEGATIVE (NEGATIVE); KETONES,URINE NEGATIVE (NEGATIVE); LEUKOCYTE ESTERASE,URINE NEGATIVE (NEGATIVE); NITRITE,URINE NEGATIVE (NEGATIVE); PROTEIN,URINE NEGATIVE (NEGATIVE); URINE SPECIFIC GRAVITY 1.019
[2018-04-03] MEDS ORDERED: KETOROLAC TROMETHAMINE INJ/PF 30 MG/1 ML SDV IV ONE (19:59)
[2018-04-03] MEDS ORDERED: NORMAL SALINE 1000 ML 1,000 ML IV ONE (19:59)
--- NOTE | 2018-04-03 20:03 | ER Document Report ---
ED GI/ - General Chief Complaint: Abdominal Pain Stated Complaint: VOMITING, DIZZY, SIDE PAIN Time Seen by Provider: 04/03/18 19:44 Notes: Patient is a 38-year-old female that comes emergency department for chief complaint of vomiting and pain in her right upper abdomen, she states she has had nausea for several days now and vomited a couple of times before but today she vomited 3 times and the pain became significantly worse. She denies flank pain, fever, reports normal bowel movements. She denies any surgeries. Past medical history of type 2 diabetes, on oral medication only. LMP within the past month. TRAVEL OUTSIDE OF THE [place] IN LAST 30 DAYS: No - Related Data Allergies/Adverse Reactions: No Known Allergies Allergy (Verified 03/14/18 13:12) Past Medical History - General Information source: Patient - Social History Smoking Status: Current Every Day Smoker Chew tobacco use (# tins/day): No Frequency of alcohol use: Rare Drug Abuse: None Lives with: Family Family History: Arthritis, CVA, DM, Hypertension, Malignancy Patient has suicidal ideation: No Patient has homicidal ideation: No Endocrine Medical History: Reports: Hx Diabetes Mellitus Type 2 Renal/ Medical History: Denies: Hx Peritoneal Dialysis Musculoskeltal Medical History: Reports Hx Musculoskeletal Deformity, Reports Hx Musculoskeletal Trauma Traumatic Medical History: Reports: Hx Fractures - Nose Surgical Hx: Negative - Immunizations Hx Diphtheria, Pertussis, Tetanus Vaccination: Yes Review of Systems - Review of Systems Constitutional: No symptoms reported EENT: No symptoms reported Cardiovascular: No symptoms reported Respiratory: No symptoms reported Gastrointestinal: See HPI Genitourinary: No symptoms reported Female Genitourinary: No symptoms reported Musculoskeletal: No symptoms reported Skin: No symptoms reported Hematologic/Lymphatic: No symptoms reported Neurological/Psychological: No symptoms reported Physical Exam - Vital signs Vitals: Temp Pulse Resp BP Pulse Ox 98.3 F 82 16 159/94 H 98 04/03/18 18:45 04/03/18 18:45 04/03/18 18:45 04/03/18 18:45 04/03/18 18:45 - Notes Notes: GENERAL: Alert, interacts well. No acute distress. HEAD: Normocephalic, atraumatic. EYES: Pupils equal, round, and reactive to light. Extraocular movements intact. ENT: Oral mucosa moist, tongue midline. NECK: Full range of motion. Supple. Trachea midline. LUNGS: Clear to auscultation bilaterally, no wheezes, rales, or rhonchi. No respiratory distress. HEART: Regular rate and rhythm. No murmur ABDOMEN: Tender in RUQ and epigastric area. Remaining abdomen is soft and benign. Non-distended. Bowel sounds present in all 4 quadrants. EXTREMITIES: Moves all 4 extremities spontaneously. No edema, normal radial and dorsalis pedis pulses bilaterally. No cyanosis. BACK: no cervical, thoracic, lumbar midline tenderness. No saddle anesthesia, normal distal neurovascular exam. NEUROLOGICAL: Alert and oriented x3. Normal speech. [cranial nerves II through XII grossly intact]. PSYCH: Normal affect, normal mood. SKIN: Warm, dry, normal turgor. No rashes or lesions noted. Course - Re-evaluation Re-evalutation: CBC, chemistry unremarkable. Lipase is in the 400s but not significantly elevated. Patient has tenderness in the right upper quadrant and epigastric area on examination. Urinalysis generally unremarkable. Ultrasound showing normal gallbladder, unremarkable ducts, no acute findings. Suspect patient either has gastritis/inflammation of the upper gastrointestinal tract versus gallbladder dyskinesis although the former is much more likely because patient smokes, drinks alcohol, takes regular ibuprofen, drinks lots of caffeine, eats lots of spicy foods. In addition to this lipase is very slightly elevated which is consistent with this and patient has had slowly progressive worsening nausea and pain developing into vomiting today. Discussed results with patient, reevaluated her, very low suspicion of acute abdomen today. Discussed recommendations, patient able to drink and take pills without any difficulty, patient discharged with medications, follow-up instructions, she states she has good primary care follow-up, she states she understands return precautions, stable at time of discharge. - Vital Signs Vital signs: Temp Pulse Resp BP Pulse Ox 97.9 F 74 16 133/83 H 95 04/03/18 22:00 04/03/18 22:00 04/03/18 22:00 04/03/18 22:00 04/03/18 22:00 - Laboratory Result Diagrams: 04/03/18 19:49 04/03/18 19:49 Laboratory results interpreted by me: 04/03/18 04/03/18 19:30 19:49 Glucose 142 H AST 11 L Lipase 422.8 H Urine Blood MODERATE H Urine Urobilinogen 2.0 H Discharge - Discharge Clinical Impression: Upper abdominal pain Vomiting Qualifiers: Vomiting type: unspecified Vomiting Intractability: non-intractable Nausea presence: with nausea Qualified Code(s): R11.2 - Nausea with vomiting, unspecified Condition: Stable Disposition: HOME, SELF-CARE Additional Instructions: Your ultrasound does not show any abnormalities. Your workup, symptoms, and evaluation are most suggestive of inflammation in your gastrointestinal tract, gastritis. Recommendation is to take the medications as prescribed, avoid caffeine, spicy food, NSAIDs, alcohol, smoking. Follow-up with primary care for additional evaluation and management. Additional evaluation can include HIDA scan to rule out gallbladder dyskinesis as we discussed or endoscopy for symptoms that will not go away. Return if you worsen including increased pain, returned vomiting, vomiting blood, black stools, or any other concerning or worsening symptoms. Prescriptions: Famotidine [Pepcid 20 mg Tablet] 20 mg PO BID #20 tablet Promethazine HCl [Phenergan 25 mg Tablet] 1 - 2 tab PO Q6H PRN #15 tablet PRN Reason: Sucralfate [Carafate 1 gm Tablet] 1 gm PO QID #20 tablet Forms: Return to Work
[2018-04-03 20:10] LABS: ABSOLUTE BASOPHILS # (AUTO) 0.1 10^3/uL (0.0-0.2); ABSOLUTE EOSINOPHILS # (AUTO) 0.2 10^3/uL (0.0-0.6); ABSOLUTE LYMPHOCYTES (AUTO) 3.6 10^3/uL (0.5-4.7); ABSOLUTE MONOCYTES (AUTO) 0.7 10^3/uL (0.1-1.4); ABSOLUTE NEUT (AUTO) 4.1 10^3/uL (1.7-8.2); BASOPHILS % (AUTO) 0.7 % (0-2); EOSINOPHILS % (AUTO) 1.9 % (0-6); HEMATOCRIT 36.5 % (36.0-47.0); HEMOGLOBIN 12.5 g/dL (12.0-15.5); LYMPHOCYTES % (AUTO) 41.7 % (13-45); MEAN CORPUSCULAR HEMOGLOBIN 31.5 pg (27.0-33.4); MEAN CORPUSCULAR HGB CONC 34.3 g/dL (32.0-36.0); MEAN CORPUSCULAR VOLUME 92 fl (80-97); MONOCYTES % (AUTO) 8.4 % (3-13); PLATELET COUNT 217 10^3/uL (150-450); RED BLOOD COUNT 3.97 10^6/uL (3.72-5.28); RED CELL DISTRIBUTION WIDTH 13.4 % (11.5-14.0); SEGMENTED NEUTROPHILS % (AUTO) 47.3 % (42-78); TOTAL CELLS COUNTED % (AUTO) 100 %; WHITE BLOOD COUNT 8.7 10^3/uL (4.0-10.5)
[2018-04-03 20:21] LABS: ALANINE AMINOTRANSFERASE 25 U/L (9-52); ALBUMIN 4.2 g/dL (3.5-5.0); ALKALINE PHOSPHATASE 110 U/L (38-126); ANION GAP 11 (5-19); ASPARTATE AMINO TRANSFERASE 11 U/L (14-36); BILIRUBIN,DIRECT 0.2 mg/dL (0.0-0.4); BILIRUBIN,TOTAL 0.9 mg/dL (0.2-1.3); BLOOD UREA NITROGEN 7 mg/dL (7-20); CARBON DIOXIDE 24 mmol/L (22-30); CHLORIDE 105 mmol/L (98-107); GLUCOSE 142 mg/dL (75-110); LIPASE 422.8 U/L (23-300); SODIUM 140.3 mmol/L (137-145); TOTAL PROTEIN 6.7 g/dL (6.3-8.2)
[2018-04-03] MEDS ORDERED: METOCLOPRAMIDE HCL INJ/PF 10 MG/2 ML SDV IV ONE (20:55)
--- NOTE | 2018-04-03 20:55 | RADIOLOGY REPORT (SQ) ---
EXAM DESCRIPTION: U/S ABDOMEN LIMITED W/O DOP COMPLETED DATE/TIME: 04/03/2018 8:39 pm REASON FOR STUDY: RUQ tenderness COMPARISON: None. TECHNIQUE: Dynamic and static grayscale images acquired of the abdomen and recorded on PACS. Additio ogmez selected color Doppler and spectral images recorded. LIMITATIONS: None. FINDINGS: PANCREAS: Not seen. LIVER: 15.7 cm. Normal echotexture. LIVER VASCULATURE: Normal directional flow of the main portal vein and hepatic veins. GALLBLADDER: Not well seen. No stones are appreciated. ULTRASOUND-DETECTED GRACIA'S SIGN: Negative. INTRAHEPATIC DUCTS AND COMMON DUCT: CBD and intrahepatic ducts normal caliber. No filling defects. INFERIOR VENA CAVA: Not seen. AORTA: Proximal aorta is normal. Mid and distal aorta not seen. RIGHT KIDNEY: Normal size, 11.3 cm. No obvious masses or hydronephrosis or stones. Evaluation limi vishnu. PERITONEAL AND RIGHT PLEURAL SPACE: No ascites or effusions. OTHER: No other significant findings. IMPRESSION: Normal right upper quadrant ultrasound. Limited by body habitus and overlying bowel gas . TECHNICAL DOCUMENTATION: JOB ID: [id number] [employer]- All Rights Reserved Reading location - IP/workstation name: [email or web address]
[2018-04-03] MEDS ORDERED: SUCRALFATE 1 GM TABLET PO ONE (21:15)
[2018-04-03] MEDS ORDERED: HYDROCODONE/ACETAMINOPHEN 5-325 MG TABLET PO ONE (21:15)
[2018-04-03] MEDS ORDERED: FAMOTIDINE 20 MG TABLET PO ONE (21:15)
[2018-04-03 22:01] VITALS: BP 133/83
== END 2018-04-03 22:00 | disposition home or self-care (01) ==
LOC: ER 18:41
DX: R10.11 Right upper quadrant pain (principal); R10.13 Epigastric pain; R11.2 Nausea with vomiting, unspecified; R42 Dizziness and giddiness; E11.9 Type 2 diabetes mellitus without complications; Z79.84 Long term (current) use of oral hypoglycemic drugs; F17.200 Nicotine dependence, unspecified, uncomplicated
CPT/HCPCS: 99284; 96361; 96374; 96375; 36415; 83690; 85025; 81025; 80053; 81001; 76705; S0119; J1885; J2765; J7030

== ENCOUNTER 2018-10-06 21:34 | Emergency (ER) | payer BC ==
--- NOTE | 2018-10-06 22:20 | RADIOLOGY REPORT (SQ) ---
EXAM DESCRIPTION: XR SHOULDER 2 OR MORE VIEWS COMPLETED DATE/TME: 10/06/2018 21:53 CLINICAL HISTORY: 38 years, Female, pain after knocking on a door today COMPARISON: None. NUMBER OF VIEWS: 3 TECHNIQUE: 3 view right shoulder LIMITATIONS: None. FINDINGS: Negative for acute fracture or dislocation. Soft tissues are unremarkable. Mild degenerative change of the AC joint. IMPRESSION: Mild degenerative change of the AC joint copyright 2010 [employer]- All Rights Reserved
--- NOTE | 2018-10-06 23:13 | ER Document Report ---
HPI - HPI Patient complains to provider of: right shoulder pain Time Seen by Provider: 10/06/18 22:52 Pain Level: 4 Context: Patient is a 38-year-old female presents the emergency department complaining of generalized right shoulder pain. Patient states around 1300 hrs. today she was playing on her daughter's door to make her come outside. States she is bringing rather vigorously with her right arm. States around that time she noticed she had some pain in her right shoulder. States she took some Motrin around 1400 hrs. and then went to sleep. Patient states she thinks the Motrin helped her pain because she was able to go to sleep but when she woke up and started moving around she continued with right shoulder pain which is why she presents to the emergency room. Past medical history: Diabetes Medications: Metformin Allergies: None - REPRODUCTIVE LMP: 10/01 Reproductive: DENIES: : - MUSCULOSKELETAL Musculoskeletal: REPORTS: Extremity pain - right arm, shoulder Past Medical History - General Information source: Patient - Social History Smoking Status: Current Some Day Smoker Chew tobacco use (# tins/day): No Frequency of alcohol use: None Drug Abuse: None Family History: Arthritis, CVA, DM, Hypertension, Malignancy Patient has suicidal ideation: No Patient has homicidal ideation: No - Past Medical History Cardiac Medical History: Reports: Hx Hypertension - NO MEDS Endocrine Medical History: Reports: Hx Diabetes Mellitus Type 2 Renal/ Medical History: Denies: Hx Peritoneal Dialysis Musculoskeletal Medical History: Reports Hx Musculoskeletal Deformity, Reports Hx Musculoskeletal Trauma Traumatic Medical History: Reports: Hx Fractures - Nose - Immunizations Hx Diphtheria, Pertussis, Tetanus Vaccination: Yes Vertical Provider Document - CONSTITUTIONAL Agree With Documented VS: Yes Notes: GENERAL: Alert, interacts well. No acute distress. HEAD: Normocephalic, atraumatic. EYES: Pupils equal, round, and reactive to light. Extraocular movements intact. ENT: Oral mucosa moist, tongue midline. NECK: Full range of motion. Supple. Trachea midline. LUNGS: Clear to auscultation bilaterally, no wheezes, rales, or rhonchi. No respiratory distress. HEART: Regular rate and rhythm. No murmur ABDOMEN: Soft, non-tender. Non-distended. Bowel sounds present in all 4 quadrants. EXTREMITIES: Moves all 4 extremities spontaneously. No edema, normal radial and dorsalis pedis pulses bilaterally. No cyanosis. 5 out of 5 strength all 4 extremities. Patient can easily flex and extend her right shoulder but has pain when she adducts and abducts it. Patient states pain is the posterior aspect of her right shoulder more so upon palpation and abducting or abducting. BACK: no cervical, thoracic, lumbar midline tenderness. No saddle anesthesia, normal distal neurovascular exam. NEUROLOGICAL: Alert and oriented x3. Normal speech. cranial nerves II through XII grossly intact PSYCH: Normal affect, normal mood. SKIN: Warm, dry, normal turgor. No rashes or lesions noted. - INFECTION CONTROL TRAVEL OUTSIDE OF THE [place] IN LAST 30 DAYS: No Course - Re-evaluation Re-evalutation: 10/06/18 23:12 Discussed with patient at bedside her x-ray results. They are negative for acute fracture or dislocation does show mild degenerative changes of the AC joint. Discussed following up with primary care provider and inevitably orthopedics. Discussed home use of Tylenol Motrin, Flexeril and Lidoderm patches. Close return precautions discussed. - Vital Signs Vital signs: Temp Pulse Resp BP Pulse Ox 98.5 F 73 16 154/85 H 98 10/06/18 21:35 10/06/18 21:35 10/06/18 21:35 10/06/18 21:35 10/06/18 21:35 Discharge - Discharge Clinical Impression: Right shoulder pain Qualifiers: Chronicity: acute Qualified Code(s): M25.511 - Pain in right shoulder Condition: Stable Disposition: HOME, SELF-CARE Instructions: Shoulder Injury ([facility]), Exercise Program for the Shoulder ([facility]) Additional Instructions: As we discussed you have been seen and treated in the emergency department for your right shoulder pain. Please take medications as prescribed. Please return to the emergency room for any other concerning symptoms. Prescriptions: Cyclobenzaprine HCl [Flexeril 10 mg Tablet] 10 mg PO TIDP PRN #15 tab PRN Reason: Forms: Elevated Blood Pressure
[2018-10-06] MEDS ORDERED: KETOROLAC TROMETHAMINE 60 MG/2 ML SDV IM ONE (23:14)
[2018-10-06] MEDS ORDERED: LIDOCAINE 5% (700 MG) TRANSDERMAL ADH..PATCH TP ONE (23:14)
[2018-10-06 23:41] VITALS: BP 160/82
== END 2018-10-06 23:41 | disposition home or self-care (01) ==
LOC: ER 21:34
DX: M25.511 Pain in right shoulder (principal); F17.200 Nicotine dependence, unspecified, uncomplicated; I10 Essential (primary) hypertension; E11.9 Type 2 diabetes mellitus without complications
CPT/HCPCS: 99283; 73030; J1885

== ENCOUNTER 2018-12-05 09:05 | Emergency (ER) | payer BC ==
--- NOTE | 2018-12-05 09:40 | ER Document Report ---
ED GI/ - General Chief Complaint: Back Pain Stated Complaint: BACK PAIN Time Seen by Provider: 12/05/18 09:20 Mode of Arrival: Ambulatory Information source: Patient Notes: 38-year-old female presents to ED for complaint and right upper quadrant and subscapular on the right side. She states that every time she takes a deep breath she has pain in this area. She denies any nausea or vomiting or fever. Patient is alert oriented respirations regular and unlabored speaking in full sentences walks with a even steady gait. TRAVEL OUTSIDE OF THE [place] IN LAST 30 DAYS: No - HPI Patient complains to provider of: Abdominal pain, Other - Right subscapular pain yesterday. She states she states she has had this pain in the past and nobody has been able to tell her what is wrong. She states that it hurts with every breath she takes Onset: Yesterday Timing/Duration: Intermittent Quality of pain: Sharp Severity at maximum: Moderate Severity in ED: Moderate Pain Level: 3 Location: RUQ Associated symptoms: denies: Nausea Exacerbated by: Movement, Deep breathing Relieved by: Denies Similar symptoms previously: Yes Recently seen / treated by doctor: No - Related Data Allergies/Adverse Reactions: No Known Allergies Allergy (Verified 12/05/18 09:17) Past Medical History - General Information source: Patient - Social History Smoking Status: Former Smoker Cigarette use (# per day): No Chew tobacco use (# tins/day): No Smoking Education Provided: No Frequency of alcohol use: None Drug Abuse: None Lives with: Spouse/Significant other Family History: Arthritis, CVA, DM, Hypertension, Malignancy - Past Medical History Cardiac Medical History: Reports: Hx Hypertension - NO MEDS Pulmonary Medical History: Reports: None EENT Medical History: Reports: None Neurological Medical History: Reports: None Endocrine Medical History: Reports: Hx Diabetes Mellitus Type 2 Renal/ Medical History: Reports: None Malignancy Medical History: Reports: None GI Medical History: Reports: None Musculoskeletal Medical History: Reports Hx Musculoskeletal Deformity, Reports H x Musculoskeletal Trauma Skin Medical History: Reports None Psychiatric Medical History: Reports: None Traumatic Medical History: Reports: Hx Fractures - Nose Infectious Medical History: Reports: None Surgical Hx: Negative Past Surgical History: Reports: None - Immunizations Immunizations up to date: Yes Hx Diphtheria, Pertussis, Tetanus Vaccination: Yes Review of Systems - Review of Systems Constitutional: No symptoms reported EENT: No symptoms reported Cardiovascular: No symptoms reported Respiratory: No symptoms reported Gastrointestinal: Abdominal pain - Right upper quadrant Genitourinary: No symptoms reported Female Genitourinary: No symptoms reported Musculoskeletal: Back pain - Right subscapular Skin: No symptoms reported Hematologic/Lymphatic: No symptoms reported Neurological/Psychological: No symptoms reported -: Yes All other systems reviewed and negative Physical Exam - Vital signs Vitals: Temp Pulse Resp BP Pulse Ox 98.7 F 66 20 176/80 H 98 12/05/18 09:19 12/05/18 09:19 12/05/18 09:19 12/05/18 09:19 12/05/18 09:19 Interpretation: Normal - General General appearance: Appears well, Alert - HEENT Head: Normocephalic, Atraumatic Eyes: Normal Pupils: PERRL - Respiratory Respiratory status: No respiratory distress Chest status: Nontender Breath sounds: Normal Chest palpation: Normal - Cardiovascular Rhythm: Regular Heart sounds: Normal auscultation Murmur: No - Abdominal Inspection: Normal Distension: No distension Bowel sounds: Normal Tenderness: Tender - Right upper quadrant/right subscapular Organomegaly: No organomegaly. No: Hepatomegaly, Splenomegaly - Back Back: Normal, Tender - Right subscapular - Extremities General upper extremity: Normal inspection, Nontender, Normal color, Normal ROM, Normal temperature General lower extremity: Normal inspection, Nontender, Normal color, Normal ROM, Normal temperature, Normal weight bearing. No: Ken's sign - Neurological Neuro grossly intact: Yes Cognition: Normal Orientation: AAOx4 [place] Coma Scale Eye Opening: Spontaneous [place] Coma Scale Verbal: Oriented Mimi Coma Scale Motor: Obeys Commands [place] Coma Scale Total: 15 Speech: Normal Motor strength normal: LUE, RUE, LLE, RLE Sensory: Normal - Psychological Associated symptoms: Normal affect, Normal mood - Skin Skin Temperature: Warm Skin Moisture: Dry Skin Color: Normal Course - Re-evaluation Re-evalutation: 12/05/18 10:59 Labs and x-ray discussed with patient. Patient was given prescription for doxycycline and discharged home with instructions to follow-up with her primary care doctor. Patient verbalized understanding and agreement with treatment plan and patient was discharged home. - Vital Signs Vital signs: Temp Pulse Resp BP Pulse Ox 98.5 F 66 18 156/90 H 100 12/05/18 11:07 12/05/18 11:07 12/05/18 11:07 12/05/18 11:07 12/05/18 11:07 - Laboratory Result Diagrams: 12/05/18 09:35 12/05/18 09:35 Laboratory results interpreted by me: 12/05/18 12/05/18 12/05/18 09:35 09:35 09:40 Hgb 11.8 L Hct 34.7 L Seg Neutrophils % 39.0 L Lymphocytes % 48.4 H Glucose 212 H Urine Glucose (UA) 150 H Urine Blood SMALL H - Diagnostic Test Radiology reviewed: Image reviewed, Reports reviewed Discharge - Discharge Clinical Impression: right patchy inflitrate Condition: Stable Disposition: HOME, SELF-CARE Instructions: Family Physicians / Practices Additional Instructions: PNEUMONIA: Your examination indicates that you have pneumonia. This is an infection of the lung tissue, usually caused by bacteria or a virus. Symptoms include cough, fever, shaking chills, chest pain, shortness of breath, and coughing up bloody sputum. Treatment for bacterial pneumonia includes rest, antibiotics for 10 to 14 days, increasing your clear liquid intake, a cool mist humidifier at your bedside, and fever medication. Often, a repeat chest X-ray is performed in a few weeks--even if you feel better--to ascertain whether the infection has compl etely resolved and no underlying lung problem is present. You should call the physician if you develop persistent vomiting, high fever that does not respond to fever medication, increasing shortness of breath, confusion, or lethargy. Also, failure to improve within two to three days is an indication for re-examination. DOXYCYCLINE: Doxycycline (Vibramycin, Doryx) is an antibiotic of the tetracycline family. This type of drug is useful for infections of the respiratory tract and genital tract, and is sometimes used for intestinal infections. Unlike most tetracyclines, doxycycline can be taken with food. It is longer acting, and (usually) less prone to side effects than regular tetracycline. Tetracycline antibiotics can stain immature teeth and SHOULD NOT BE TAKEN BY CHILDREN, NURSING MOTHERS, OR WOMEN. Tetracyclines can make you more prone to sunburn. Abdominal cramping, nausea, and diarrhea are occasional side effects. Women may experience vaginal yeast infections. Call the doctor at once if you develop hives, itching, shortness of breath, or lightheadedness. USE OF ACETAMINOPHEN (Tylenol): Acetaminophen may be taken for pain relief or fever control. It's much safer than aspirin, offering a wider range of "safe" dosages. It is safe during . Some brand names are Tylenol, Panadol, Datril, Anacin 3, Tempra, and Liquiprin. Acetaminophen can be repeated every four hours. The following are maximum recommended dosages: WEIGHT Dose Drops Elixir Chewable(80mg) (LBS.) drprs=droppers tsp=teaspoon 6 40 mg 0.4 ml (1/2) 6-11 80 mg 0.8 ml (full) tsp 1 tab 12-16 120 mg 1 1/2 drprs 3/4 tsp 1 1/2 tabs 17-23 160 mg 2 drprs 1 tsp 2 tabs 24-30 240 mg 3 drprs 1 1/2 tsp 3 tabs 30-35 320 mg 2 tsp 4 tabs 36-41 360 mg 2 1/4 tsp 4 1/2 tabs 42-47 400 mg 2 1/2 tsp 5 tabs 48-53 480 mg 3 tsp 6 tabs 54-59 520 mg 3 1/4 tsp 6 1/2 tabs 60-64 560 mg 3 1/2 tsp 7 tabs 65-70 600 mg 3 3/4 tsp 7 1/2 tabs 71-76 640 mg 4 tsp 8 tabs 77-82 720 mg 4 1/2 tsp 9 tabs 83-88 800 mg 5 tsp 10 tabs >89 pounds or adults 650 mg to 900 mg Acetaminophen can be repeated every four hours. Maximum dose not to exceed 4000 mg a day. These maximum recommended dosages are slightly higher than the dosages written on the product container, but these dosages are very safe and below the toxic dosage for acetaminophen. FOLLOW-UP CARE: If you have been referred to a physician for follow-up care, call the physicians office for an appointment as you were instructed or within the next two days. If you experience worsening or a significant change in your symptoms, notify the physician immediately or return to the Emergency Department at any time for re-evaluation. Prescriptions: Doxycycline Hyclate 100 mg PO BID #20 capsule Forms: Elevated Blood Pressure, Return to Work
[2018-12-05 09:49] LABS: ABSOLUTE BASOPHILS # (AUTO) 0.1 10^3/uL (0.0-0.2); ABSOLUTE EOSINOPHILS # (AUTO) 0.1 10^3/uL (0.0-0.6); ABSOLUTE MONOCYTES (AUTO) 0.6 10^3/uL (0.1-1.4); ABSOLUTE NEUT (AUTO) 2.4 10^3/uL (1.7-8.2); BASOPHILS % (AUTO) 1.1 % (0-2); EOSINOPHILS % (AUTO) 1.6 % (0-6); HEMATOCRIT 34.7 % (36.0-47.0); HEMOGLOBIN 11.8 g/dL (12.0-15.5); LYMPHOCYTES % (AUTO) 48.4 % (13-45); MEAN CORPUSCULAR HEMOGLOBIN 30.4 pg (27.0-33.4); MEAN CORPUSCULAR HGB CONC 33.9 g/dL (32.0-36.0); MEAN CORPUSCULAR VOLUME 90 fl (80-97); MONOCYTES % (AUTO) 9.9 % (3-13); PLATELET COUNT 214 10^3/uL (150-450); RED BLOOD COUNT 3.86 10^6/uL (3.72-5.28); RED CELL DISTRIBUTION WIDTH 13.1 % (11.5-14.0); TOTAL CELLS COUNTED % (AUTO) 100 %; WHITE BLOOD COUNT 6.2 10^3/uL (4.0-10.5)
[2018-12-05 10:07] LABS: ALANINE AMINOTRANSFERASE 12 U/L (9-52); ALBUMIN 3.9 g/dL (3.5-5.0); ALKALINE PHOSPHATASE 123 U/L (38-126); ANION GAP 6 (5-19); ASPARTATE AMINO TRANSFERASE 15 U/L (14-36); BILIRUBIN,DIRECT 0.3 mg/dL (0.0-0.4); BILIRUBIN,TOTAL 0.8 mg/dL (0.2-1.3); BLOOD UREA NITROGEN 16 mg/dL (7-20); CALCIUM 9.5 mg/dL (8.4-10.2); CARBON DIOXIDE 28 mmol/L (22-30); CHLORIDE 105 mmol/L (98-107); GLUCOSE 212 mg/dL (75-110); LIPASE 179.3 U/L (23-300); POTASSIUM 4.4 mmol/L (3.6-5.0); SODIUM 138.8 mmol/L (137-145); TOTAL PROTEIN 6.5 g/dL (6.3-8.2)
[2018-12-05 10:08] LABS: APPEARANCE,URINE CLEAR; BILIRUBIN,URINE NEGATIVE (NEGATIVE); COLOR,URINE YELLOW; GLUCOSE, URINE 150 mg/dL (NEGATIVE); KETONES,URINE NEGATIVE (NEGATIVE); LEUKOCYTE ESTERASE,URINE NEGATIVE (NEGATIVE); NITRITE,URINE NEGATIVE (NEGATIVE); PROTEIN,URINE NEGATIVE (NEGATIVE); URINE SPECIFIC GRAVITY 1.025; UROBILINOGEN,URINE NEGATIVE mg/dL (<2.0)
--- NOTE | 2018-12-05 10:22 | RADIOLOGY REPORT (SQ) ---
EXAM DESCRIPTION: CHEST 2 VIEWS COMPLETED DATE/TIME: 12/05/2018 10:02 am REASON FOR STUDY: right subscapular pain COMPARISON: 03/14/2016 EXAM PARAMETERS: NUMBER OF VIEWS: two views TECHNIQUE: Digital Frontal and Lateral radiographic views of the chest acquired. RADIATION DOSE: NA LIMITATIONS: none FINDINGS: LUNGS AND PLEURA: Vague patchy parenchymal density in the right perihilar region, raise t he question of iinfiltrate. The left lung is clear. No pneumothorax or pleural effusion. MEDIASTINUM AND HILAR STRUCTURES: No masses or contour abnormalities. HEART AND VASCULAR STRUCTURES: Heart normal size. No evidence for failure. BONES: No acute findings. HARDWARE: None in the chest. OTHER: No other significant finding. IMPRESSION: 1. Vague patchy density in the right perihilar region, findings raise the question of i nfiltrate. Correlation with history suggested. TECHNICAL DOCUMENTATION: JOB ID: [id number] [employer]- All Rights Reserved Reading location - IP/workstation name: [email or web address]
--- NOTE | 2018-12-05 10:23 | RADIOLOGY REPORT (SQ) ---
EXAM DESCRIPTION: U/S ABDOMEN LIMITED W/O DOP COMPLETED DATE/TIME: 12/05/2018 10:05 am REASON FOR STUDY: right upper quad and subscapular pain COMPARISON: 04/03/2018 TECHNIQUE: Dynamic and static grayscale images acquired of the abdomen and recorded on PACS. Additio nal selected color Doppler and spectral images recorded. LIMITATIONS: None. FINDINGS: PANCREAS: No masses. Visualized pancreatic duct normal caliber. LIVER: No masses. Echotexture normal. LIVER VASCULATURE: Normal directional flow of the main portal vein and hepatic veins. GALLBLADDER: Contracted gallbladder. No stones. Normal wall thickness. No pericholecystic fluid. ULTRASOUND-DETECTED GRACIA'S SIGN: Negative. INTRAHEPATIC DUCTS AND COMMON DUCT: CBD and intrahepatic ducts normal caliber. No filling defects. INFERIOR VENA CAVA: Normal flow. AORTA: No aneurysm. RIGHT KIDNEY: Normal size. Normal echogenicity. No solid or suspicious masses. No hydronephrosis. No calcifications. PERITONEAL AND RIGHT PLEURAL SPACE: No ascites or effusions. OTHER: No other significant findings. IMPRESSION: Contracted gallbladder. By report, patient is not NPO. No ultrasound abnormality of th e right upper quadrant to explain abdominal pain. Consider CT to further evaluate unexplained abdomi nal pain. TECHNICAL DOCUMENTATION: JOB ID: [id number] [employer]- All Rights Reserved Reading location - IP/workstation name: [email or web address]
[2018-12-05 11:10] VITALS: BP 156/90
== END 2018-12-05 11:10 | disposition home or self-care (01) ==
LOC: ER 09:05
DX: R91.8 Other nonspecific abnormal finding of lung field (principal); M54.9 Dorsalgia, unspecified; R10.11 Right upper quadrant pain
CPT/HCPCS: 36415; 71046; 76705; 80053; 81001; 83690; 84703; 85025; 99284

== ENCOUNTER → 2018-12-16 | Outpatient (CLI) | payer BC ==
--- NOTE | 2018-12-16 13:51 | RADIOLOGY REPORT (SQ) ---
EXAM DESCRIPTION: CHEST 2 VIEWS COMPLETED DATE/TIME: 12/16/2018 1:26 pm REASON FOR STUDY: J18.1 2 WK F/U OF PNEUMONIA COMPARISON: Chest films 12/05/2018, 11/11/2017 CT chest 03/14/2016 EXAM PARAMETERS: NUMBER OF VIEWS: two views TECHNIQUE: Digital Frontal and Lateral radiographic views of the chest acquired. RADIATION DOSE: NA LIMITATIONS: none FINDINGS: LUNGS AND PLEURA: No opacities, masses or pneumothorax. No pleural effusion. MEDIASTINUM AND HILAR STRUCTURES: No masses or contour abnormalities. HEART AND VASCULAR STRUCTURES: Heart normal size. No evidence for failure. BONES: No acute findings. HARDWARE: None in the chest. OTHER: No other significant finding. IMPRESSION: NO ACUTE RADIOGRAPHIC FINDING IN THE CHEST. TECHNICAL DOCUMENTATION: JOB ID: [id number] [employer]- All Rights Reserved Reading location - IP/workstation name: [email or web address]
== END ==
LOC: RAD 13:13
PROVIDERS: ATTEND Family Medicine
DX: Z09 Encounter for follow-up examination after completed treatment for conditions other than malignant neoplasm (principal); Z87.01 Personal history of pneumonia (recurrent)
CPT/HCPCS: 71046

== ENCOUNTER 2019-05-02 04:48 | Emergency (ER) | payer BC ==
--- NOTE | 2019-05-02 06:44 | ER Document Report ---
Entered by HEIKE JANG SCRIBE 05/02/19 0631 Acting as scribe for:TAISHA WOLFF MD ED GI/ - General Chief Complaint: Pelvic Pain Stated Complaint: PELVIC PAIN Time Seen by Provider: 05/02/19 06:18 Mode of Arrival: Ambulatory Information source: Patient Notes: 39-year-old female who presents to the emergency department today with complaints of pelvic pain for the last 3 days. Patient states she has concerns that she may have a sexually transmitted infection. Patient states that it ramírez when she urinates but she goes on to elaborate that it is "not her urethra, it is her lips". Patient describes having "sores on her lips". Patient states she has not noticed any vaginal bleeding, fevers, or vaginal discharge. Patient's last menstrual period was on 04/19/2019. The patient reports that she took a picture of the area and was able to see these lesions. She does not have the picture on her cell phone at this time for me to see what it was that she thought she was seeing. TRAVEL OUTSIDE OF THE [place] IN LAST 30 DAYS: No - Related Data Allergies/Adverse Reactions: No Known Allergies Allergy (Verified 05/02/19 04:53) Past Medical History - General Information source: Patient - Social History Smoking Status: Never Smoker Cigarette use (# per day): No Frequency of alcohol use: Occasional Lives with: Family Family History: Arthritis, CVA, DM, Hypertension, Malignancy - Past Medical History Cardiac Medical History: Reports: Hx Hypertension - NO MEDS Endocrine Medical History: Reports: Hx Diabetes Mellitus Type 2 - metformin, prescribed insulin but had a "allergic reaction" so stopped it Musculoskeletal Medical History: Reports Hx Musculoskeletal Deformity, Reports Hx Musculoskeletal Trauma Traumatic Medical History: Reports: Hx Fractures - Nose Past Surgical History: Reports: Hx Nose Surgery - Immunizations Immunizations up to date: Yes Hx Diphtheria, Pertussis, Tetanus Vaccination: Yes Review of Systems - Review of Systems Constitutional: denies: Fever EENT: No symptoms reported Cardiovascular: No symptoms reported Respiratory: No symptoms reported Gastrointestinal: No symptoms reported Genitourinary: See HPI, Pain - location of pain describes as "on the lips" Female Genitourinary: See HPI, Last menstrual period - 04/19/2019, Other - conc erns for STI. denies: Vaginal discharge, Vaginal bleeding Musculoskeletal: No symptoms reported Skin: No symptoms reported Hematologic/Lymphatic: No symptoms reported Neurological/Psychological: No symptoms reported -: Yes All other systems reviewed and negative Physical Exam - Vital signs Vitals: Temp Pulse Resp BP Pulse Ox 98.0 F 97 14 152/99 H 98 05/02/19 04:52 05/02/19 04:52 05/02/19 04:52 05/02/19 04:52 05/02/19 04:52 - Notes Notes: Physical Exam: General: Alert, appears well. HEENT: Normocephalic. Atraumatic. PERRL. Extraocular movements intact. Oropharynx clear. Neck: Supple. Non-tender. Respiratory: No respiratory distress. Clear and equal breath sounds bilaterally. Cardiovascular: Regular rate and rhythm. Abdominal: Abdomen is morbidly obese, soft, tender in the pelvic region. Back: Grossly normal. Pelvic: Examination of the external genitalia with overhead light does not show any ulcerations, lacerations, cystic lesions, or any other abnormality. There was also no areas of sensitivity or tenderness. I cannot find what the patient reports she saw when she photographed herself earlier today. She does not have a photograph on a cell phone for me to look at now. Bimanual exam shows cervical motion tenderness and uterus palpation tenderness. Is difficult to evaluate the adnexa due to the patient's body habitus. Speculum exam shows a whitish bubbly discharge. There is no inguinal adenopathy noted. Extremities: Moves all four extremities. Upper extremities: Normal inspection. Normal ROM. Lower extremities: Normal inspection. No edema. Normal ROM. Neurological: Normal cognition. AAOx4. Normal speech. Psychological: Normal affect. Normal Mood. Skin: Warm. Dry. Normal color. 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 The cause could be the tubes, ovaries, uterus, intestines, appendix, pelvic muscles and connective tissue, or the urinary tract. The cause of your pelvic pain is not clear. However, it seems safe to treat you outside the hospital. If the pain sounds like a temporary problem, we sometimes wait to see if it goes away. Other patients may need additional tests, such as pelvic ultrasound or cultures. Conditions may change. Call us or come back for reexamination if any problems occur, such as: (1) Pain that becomes more severe, steady, or becomes concentrated in one specific area. Also, pain that is more severe with movement or coughing. (2) Vomiting that persists or becomes more frequent. (3) Blood in the vomitus, urine, or bowel movements. Blood in the stool may have a tarry or black appearance. (4) Shaking chills or fever greater than 100 degrees. (5) The abdomen becomes more distended or swollen. (6) Bowel movements cease. (7) Heavy vaginal bleeding. I did not find any lesions on the external genitalia that you were concerned about. The wet prep did not show any evidence of yeast infection. The urine did have quite a lot of sugar in it suggesting your diabetes is not very well controlled. Your blood pressure was elevated and appears to not be very well controlled. Your physical exam showed considerable tenderness to cervical motion and uterus palpation suggesting a pelvic infection. You will be treated with antibiotics appropriate for pelvic infection, if the cultures show something unexpected, you will be contacted. You should follow-up with your primary care provider to discuss better management of your diabetes and your blood pressure. Be sure to drink plenty of fluids, especially as long as her sugars are running high. RETURN TO THE EMERGENCY ROOM IF ANY NEW OR WORSENING SYMPTOMS. Prescriptions: Doxycycline Hyclate 100 mg PO BID #14 tablet.dr Chavarria Attestation: 05/02/19 06:48 I personally performed the services described in the documentation, reviewed and edited the documentation which was dictated to the davidibe in my presence, and it accurately records my words and actions. I personally performed the services described in the documentation, reviewed and edited the documentation which was dictated to the scribe in my presence, and it accurately records my words and actions.
[2019-05-02] MEDS ORDERED: CEFTRIAXONE INJ 1000 MG VIAL IM ONE (06:47)
[2019-05-02] MEDS ORDERED: LIDOCAINE 1% INJ-PF (10 MG/ML) 30 ML SDV INJ ONE (06:48)
[2019-05-02 06:57] LABS: APPEARANCE,URINE CLEAR; BILIRUBIN,URINE NEGATIVE (NEGATIVE); COLOR,URINE YELLOW; GLUCOSE, URINE >=500 mg/dL (NEGATIVE); KETONES,URINE TRACE mg/dL (NEGATIVE); LEUKOCYTE ESTERASE,URINE NEGATIVE (NEGATIVE); NITRITE,URINE NEGATIVE (NEGATIVE); PROTEIN,URINE NEGATIVE (NEGATIVE); UROBILINOGEN,URINE NEGATIVE mg/dL (<2.0)
[2019-05-02 06:59] LABS: T.VAGINALIS (WET MOUNT) NO TRICHOMONAS SEEN; WBCS (WET MOUNT) RARE WBCS SEEN; YEAST (WET MOUNT) NO YEAST SEEN
[2019-05-02 08:23] LABS: CHLAM PCR NOT DETECTED (NOT DETECT)
[2019-05-02 08:26] VITALS: BP 147/88
== END 2019-05-02 08:23 | disposition home or self-care (01) ==
LOC: ER 04:48
DX: R10.2 Pelvic and perineal pain (principal); R81 Glycosuria; R30.0 Dysuria; I10 Essential (primary) hypertension; E11.9 Type 2 diabetes mellitus without complications; Z79.84 Long term (current) use of oral hypoglycemic drugs; Z79.4 Long term (current) use of insulin
CPT/HCPCS: 99284; 96374; 96375; 87210; 81025; 81001; 87491; 87591; J3490; J0696

== ENCOUNTER 2019-07-11 03:46 | Emergency (ER) | payer BC ==
--- NOTE | 2019-07-11 05:18 | ER Document Report ---
ED General - General Chief Complaint: Pelvic Pain Stated Complaint: PELVIC PAIN Time Seen by Provider: 07/11/19 05:01 Notes: Patient is a 39-year-old female that comes to the emergency department for chief complaint of possible exposure to an STD. She states that her previous boyfriend contacted her and told her that he had a positive RPR blood test from months ago that he had not followed up with. She states she is concerned because she did have sexual exposure to him. She states she wants an RPR tested and she is hoping for antibiotic coverage for syphilis as well. She states she had an area where she thought she saw a lesion previously but she had an examination and she was told that they did not see anything concerning. She also states that she had a pelvic exam at that time and they started on doxycycline but she did not take it because she did not think she needed it. She denies current discharge, pelvic pain, abdominal pain, rash, fevers, or any other complaints at this time. She denies any current symptoms. TRAVEL OUTSIDE OF THE [place] IN LAST 30 DAYS: No - Related Data Allergies/Adverse Reactions: No Known Allergies Allergy (Verified 07/11/19 03:56) Past Medical History - General Information source: Patient - Social History Smoking Status: Never Smoker Drug Abuse: None Lives with: Family Family History: Arthritis, CVA, DM, Hypertension, Malignancy Patient has suicidal ideation: No Patient has homicidal ideation: No - Past Medical History Cardiac Medical History: Reports: Hx Hypertension - NO MEDS Endocrine Medical History: Reports: Hx Diabetes Mellitus Type 2 - metformin, prescribed insulin but had a "allergic reaction" so stopped it Renal/ Medical History: Denies: Hx Peritoneal Dialysis Musculoskeletal Medical History: Reports Hx Musculoskeletal Deformity, Reports Hx Musculoskeletal Trauma Traumatic Medical History: Reports: Hx Fractures - Nose Past Surgical History: Reports: Hx Nose Surgery - Immunizations Immunizations up to date: Yes Hx Diphtheria, Pertussis, Tetanus Vaccination: Yes Review of Systems - Review of Systems Constitutional: See HPI EENT: No symptoms reported Cardiovascular: No symptoms reported Respiratory: No symptoms reported Gastrointestinal: No symptoms reported Genitourinary: No symptoms reported Female Genitourinary: See HPI Musculoskeletal: No symptoms reported Skin: No symptoms reported Hematologic/Lymphatic: No symptoms reported Neurological/Psychological: No symptoms reported Physical Exam - Vital signs Vitals: Temp Pulse Resp BP Pulse Ox 97.8 F 78 16 150/93 H 98 07/11/19 03:51 07/11/19 03:51 07/11/19 03:51 07/11/19 03:51 07/11/19 03:51 - Notes Notes: GENERAL: Alert, interacts well. No acute distress. HEAD: Normocephalic, atraumatic. EYES: Pupils equal, round, and reactive to light. Extraocular movements intact. ENT: Oral mucosa moist, tongue midline. Oropharynx unremarkable. Airway patent. NECK: Full range of motion. Supple. Trachea midline. LUNGS: Clear to auscultation bilaterally, no wheezes, rales, or rhonchi. No respiratory distress. HEART: Regular rate and rhythm. No murmur ABDOMEN: Soft, non-tender. Non-distended. Bowel sounds present in all 4 quadrants. GENITOURINARY: No external lesions or internal lesions noted, small amount of whitish discharge, no concerning findings otherwise. No CMT. Exam performed with Irma PCT at bedside. EXTREMITIES: Moves all 4 extremities spontaneously. No edema, normal radial and dorsalis pedis pulses bilaterally. No cyanosis. BACK: no cervical, thoracic, lumbar midline tenderness. No saddle anesthesia, normal distal neurovascular exam. Moves all extremities in full range of motion. NEUROLOGICAL: Alert and oriented x3. Normal speech. Cranial nerves II through XII grossly intact. PSYCH: Normal affect, normal mood. SKIN: Warm, dry, normal turgor. No rashes or lesions noted. Course - Re-evaluation Re-evalutation: test is negative. RPR is pending. Pelvic exam shows small amount of whitish discharge, no lesions noted however. Soft benign abdomen. Patient is very well-appearing, unremarkable vital signs. I do not see any physical evidence of syphilis, patient is not reporting any concerning symptoms otherwise, however patient is reporting that she has been exposed to someone with a positive RPR therefore she will be treated with penicillin G and RPR will be performed as patient requested. Treating for bacterial vaginosis as well. Discussed follow-up and return precautions. Patient states appreciation and agreement. - Vital Signs Vital signs: Temp Pulse Resp BP Pulse Ox 98.1 F 72 18 144/95 H 98 07/11/19 06:55 07/11/19 06:55 07/11/19 06:55 07/11/19 06:55 07/11/19 06:55 Discharge - Discharge Clinical Impression: Vaginal discharge, STD exposure Condition: Stable Disposition: HOME, SELF-CARE Additional Instructions: We are treating you for bacterial vaginosis, you have also been treated prophylactically for syphilis. Your tests are pending. You will be contacted with instructions if needed. Follow-up with primary care. Return for any concerning symptoms including developing rash, developing pelvic pain, fevers, any other concerning symptoms, or if something is not right. Prescriptions: Metronidazole [Flagyl 500 mg Tablet] 500 mg PO BID 7 Days #14 tablet
[2019-07-11] MEDS ORDERED: PENICILLIN G BENZATHINE 1.2 MILLION UNIT/2 ML DISP.SYRIN IM ONE (05:44)
[2019-07-11 05:52] LABS: BACTERIA (WET MOUNT) 3+ BACTERIA SEEN; EPITHELIALS (WET MOUNT) 3+ EPITHELIALS SEEN; T.VAGINALIS (WET MOUNT) NO TRICHOMONAS SEEN; WBCS (WET MOUNT) FEW WBCS SEEN; YEAST (WET MOUNT) NO YEAST SEEN
[2019-07-11 06:57] VITALS: BP 144/95
[2019-07-11 07:18] LABS: CHLAM PCR NOT DETECTED (NOT DETECT)
== END 2019-07-11 07:05 | disposition home or self-care (01) ==
LOC: ER 03:46
DX: Z20.2 Contact with and (suspected) exposure to infections with a predominantly sexual mode of transmission (principal); N76.0 Acute vaginitis; B96.89 Other specified bacterial agents as the cause of diseases classified elsewhere; I10 Essential (primary) hypertension; E11.9 Type 2 diabetes mellitus without complications
CPT/HCPCS: 99283; 96372; 36415; 87210; 84703; 86592; 87491; 87591; J0561

== ENCOUNTER 2019-09-17 13:29 | Observation (INO) | payer BC ==
[2019-09-17] MEDS ORDERED: ONDANSETRON HCL INJ/PF 4 MG/2 ML SDV IV ONE (13:50)
[2019-09-17] MEDS ORDERED: NORMAL SALINE 1000 ML 2,000 ML IV ONE (13:50)
--- NOTE | 2019-09-17 13:53 | ER Document Report ---
ED Medical Screen (RME) - General Stated Complaint: HIGH BLOOD SUGAR/SOB/CONFUSED/DIZZY Time Seen by Provider: 09/17/19 13:46 Notes: Patient is a 39-year-old female who presents emergency department with a chief complaint of generally not feeling well. Patient read out of her metformin about a week ago. Patient has not been checking her blood sugars, but when she checked it yesterday it was high. Patient is supposed to be on metformin and states when she is on it her blood sugars are in the 4-5 100s. She try to get into her doctor's office, but could not get in. Patient states that she feels nauseous, but has not vomited. Denies any abdominal pain. Exam: Soft nontender abdomen. Blood glucose reading high on glucometer. I have greeted and performed a rapid initial assessment of this patient. A comprehensive ED assessment and evaluation of the patient, analysis of test results and completion of medical decision making process will be conducted by an additional ED providers. TRAVEL OUTSIDE OF THE [place] IN LAST 30 DAYS: No - Related Data Allergies/Adverse Reactions: No Known Allergies Allergy (Verified 07/29/19 20:28) Past Medical History - Past Medical History Cardiac Medical History: Reports: Hx Hypertension - NO MEDS Endocrine Medical History: Reports: Hx Diabetes Mellitus Type 2 - metformin, prescribed insulin but had a "allergic reaction" so stopped it Renal/ Medical History: Denies: Hx Peritoneal Dialysis Musculoskeltal Medical History: Reports Hx Musculoskeletal Deformity, Reports Hx Musculoskeletal Trauma Traumatic Medical History: Reports: Hx Fractures - Nose Past Surgical History: Reports: Hx Nose Surgery - Immunizations Immunizations up to date: Yes Hx Diphtheria, Pertussis, Tetanus Vaccination: Yes Physical Exam - Vital signs Vitals: Temp Pulse Resp BP Pulse Ox 98.1 F 95 20 154/88 H 98 09/17/19 13:50 09/17/19 13:50 09/17/19 13:50 09/17/19 13:50 09/17/19 13:50 Course - Vital Signs Vital signs: Temp Pulse Resp BP Pulse Ox 98.1 F 95 20 154/88 H 98 09/17/19 13:50 09/17/19 13:50 09/17/19 13:50 09/17/19 13:50 09/17/19 13:50
[2019-09-17 14:25] LABS: APPEARANCE,URINE CLEAR; BILIRUBIN,URINE NEGATIVE (NEGATIVE); COLOR,URINE STRAW; GLUCOSE, URINE >=500 mg/dL (NEGATIVE); KETONES,URINE NEGATIVE (NEGATIVE); LEUKOCYTE ESTERASE,URINE NEGATIVE (NEGATIVE); NITRITE,URINE NEGATIVE (NEGATIVE); PROTEIN,URINE NEGATIVE (NEGATIVE); URINE SPECIFIC GRAVITY 1.029; UROBILINOGEN,URINE NEGATIVE mg/dL (<2.0)
[2019-09-17 14:27] LABS: ABSOLUTE BASOPHILS # (AUTO) 0.1 10^3/uL (0.0-0.2); ABSOLUTE EOSINOPHILS # (AUTO) 0.1 10^3/uL (0.0-0.6); ABSOLUTE LYMPHOCYTES (AUTO) 2.7 10^3/uL (0.5-4.7); ABSOLUTE MONOCYTES (AUTO) 0.7 10^3/uL (0.1-1.4); ABSOLUTE NEUT (AUTO) 3.5 10^3/uL (1.7-8.2); BASOPHILS % (AUTO) 1.2 % (0-2); HEMATOCRIT 39.6 % (36.0-47.0); HEMOGLOBIN 13.4 g/dL (12.0-15.5); LYMPHOCYTES % (AUTO) 38.5 % (13-45); MEAN CORPUSCULAR HEMOGLOBIN 29.8 pg (27.0-33.4); MEAN CORPUSCULAR HGB CONC 33.8 g/dL (32.0-36.0); MEAN CORPUSCULAR VOLUME 88 fl (80-97); MONOCYTES % (AUTO) 10.4 % (3-13); PLATELET COUNT 220 10^3/uL (150-450); RED CELL DISTRIBUTION WIDTH 12.4 % (11.5-14.0); SEGMENTED NEUTROPHILS % (AUTO) 48.9 % (42-78); TOTAL CELLS COUNTED % (AUTO) 100 %; WHITE BLOOD COUNT 7.1 10^3/uL (4.0-10.5)
[2019-09-17 14:44] LABS: ALBUMIN 4.2 g/dL (3.5-5.0); ALKALINE PHOSPHATASE 313 U/L (38-126); ANION GAP 14 (5-19); ASPARTATE AMINO TRANSFERASE 23 U/L (14-36); BILIRUBIN,DIRECT 0.1 mg/dL (0.0-0.4); BILIRUBIN,TOTAL 0.5 mg/dL (0.2-1.3); BLOOD UREA NITROGEN 12 mg/dL (7-20); CALCIUM 9.6 mg/dL (8.4-10.2); CARBON DIOXIDE 20 mmol/L (22-30); CHLORIDE 93 mmol/L (98-107); POTASSIUM 4.8 mmol/L (3.6-5.0); TOTAL PROTEIN 7.2 g/dL (6.3-8.2)
[2019-09-17 14:59] LABS: GLUCOSE 797 mg/dL (75-110)
--- NOTE | 2019-09-17 15:41 | ER Document Report ---
ED General - General Chief Complaint: High Blood Sugar Stated Complaint: HIGH BLOOD SUGAR/SOB/CONFUSED/DIZZY Time Seen by Provider: 09/17/19 13:46 Notes: 39-year-old female who is a diabetic presents emergency department complaining of feeling confused, dizzy, weak and lightheaded with blurry vision starting today. Patient states that she has uncontrolled diabetes, she has been diabetic for approximately 11 years. Was started on insulin a few years ago but it made her swell so she has not been using it. Patient states that she has been on metformin for at least a year, back in December she was changed from 1000 mg twice a day down to 500 mg twice a day by her primary care provider from [facility] in [facility] in December. States that for at least a year her blood sugars have been running between 405 100. Patient admits nausea but denies any vomiting or diarrhea, denies any abdominal pain, shortness of breath or chest pain, denies any numbness, tingling. Denies any focal weakness. TRAVEL OUTSIDE OF THE [place] IN LAST 30 DAYS: No - Related Data Allergies/Adverse Reactions: No Known Allergies Allergy (Verified 07/29/19 20:28) Past Medical History - General Information source: Patient - Social History Smoking Status: Never Smoker Chew tobacco use (# tins/day): No Frequency of alcohol use: None Drug Abuse: None Family History: Arthritis, CVA, DM, Hypertension, Malignancy Patient has suicidal ideation: No Patient has homicidal ideation: No - Past Medical History Cardiac Medical History: Reports: Hx Hypertension - NO MEDS Endocrine Medical History: Reports: Hx Diabetes Mellitus Type 2 - metformin, prescribed insulin but had a "allergic reaction" so stopped it Renal/ Medical History: Denies: Hx Peritoneal Dialysis Musculoskeletal Medical History: Reports Hx Musculoskeletal Deformity, Reports Hx Musculoskeletal Trauma Traumatic Medical History: Reports: Hx Fractures - Nose Past Surgical History: Reports: Hx Nose Surgery - Immunizations Immunizations up to date: Yes Hx Diphtheria, Pertussis, Tetanus Vaccination: Yes Review of Systems - Review of Systems Constitutional: See HPI EENT: See HPI Cardiovascular: No symptoms reported Hematologic/Lymphatic: See HPI - hyperglycemia. -: Yes All other systems reviewed and negative Physical Exam - Vital signs Vitals: Temp Pulse Resp BP Pulse Ox 98.1 F 95 20 154/88 H 98 09/17/19 13:50 09/17/19 13:50 09/17/19 13:50 09/17/19 13:50 09/17/19 13:50 Interpretation: Hypertensive - Notes Notes: GENERAL: Alert, interacts well. No acute distress. HEAD: Normocephalic, atraumatic EYES: Pupils equal, round and reactive to light, extraocular movements intact. ENT: Oral mucosa moist, tongue midline. NECK: Full range of motion, supple, trachea midline. LUNGS: Clear to auscultation bilaterally, no wheezes, rales or rhonchi, no respiratory distress. HEART: Regular rate and rhythm, no murmurs, gallops, rubs. ABDOMEN: Soft, nontender, nondistended, bowel sounds present in all 4 quadrants. EXTREMITIES: Moves all 4 extremities spontaneously, no edema, radial and dorsalis pedis pulses 2/4 bilaterally. No cyanosis. NEUROLOGICAL: Alert and oriented x3, normal speech. PSYCH: Normal mood, normal affect. SKIN: Warm, Dry, normal turgor, no rashes or lesions noted. Course - Re-evaluation Re-evalutation: 09/17/19 16:41 CBC unremarkable, VBG unremarkable, CMP shows pseudohyponatremia with a sodium of 127.1, glucose markedly elevated at 797, A1c greater than 14, lipase mildly elevated at 301.1, patient has nausea but no vomiting and no abdominal pain. Glucose greater than 500 in the urine, specific gravity is concentrated at 1.029, no ketones. Patient is being hydrated with 2 L via normal saline, discussed case with Dr. Gould who agrees to accept the patient to his service in observation status for hyperglycemia. Recommend starting 20 units of Humalog subcu. - Vital Signs Vital signs: Temp Pulse Resp BP Pulse Ox 98.1 F 95 8 L 123/68 98 09/17/19 13:50 09/17/19 13:50 09/17/19 15:04 09/17/19 15:04 09/17/19 15:04 - Laboratory Result Diagrams: 09/17/19 14:06 09/17/19 14:06 Laboratory results interpreted by me: 09/17/19 09/17/19 09/17/19 14:06 14:06 14:06 Sodium 127.1 L Chloride 93 L Carbon Dioxide 20 L Glucose 797 H* Hemoglobin A1c % > 14.0 H Alkaline Phosphatase 313 H Lipase 301.1 H Urine Glucose (UA) >=500 H Discharge - Discharge Clinical Impression: Nonadherence to medication, Nausea Hyperglycemia due to type 2 diabetes mellitus Qualifiers: Diabetes mellitus buttermaker continuous churn insulin use: without buttermaker continuous churn use Qualified Code(s): E11.65 - Type 2 diabetes mellitus with hyperglycemia Condition: Good Disposition: ADMITTED OBSERVATION Admitting Provider: Bryanna (Hospitalist) Unit Admitted: Medical Floor
[2019-09-17 16:04] LABS: VENOUS BLOOD BASE EXCESS -2.6 mmol/L; VENOUS BLOOD HCO3 22.3 mmol/L (20-32); VENOUS BLOOD PCO2 38.8 mmHg (35-63); VENOUS BLOOD PH 7.38 (7.30-7.42)
[2019-09-17] MEDS ORDERED: INSULIN LISPRO 100 UNIT/ML 3 ML VIAL SUBCUT ONE (16:27)
[2019-09-17] MEDS ORDERED: GLUCAGON,HUMAN RECOMB 1 MG INJ IM PRN (16:49)
[2019-09-17] MEDS ORDERED: DEXTROSE 50%-WATER 25 GM/50 ML DISP.SYRIN IV PRN ×2 (16:49)
[2019-09-17] MEDS ORDERED: DEXTROSE 40% GEL 15 GM TUBE PO PRN ×2 (16:49)
--- NOTE | 2019-09-17 16:58 | PDOC H&P ---
History of Present Illness History of Present Illness: LOLLY LONDON is a 39 year old female with a history of diabetes who states she was taking insulin at one point but she stopped taking it because it was making her swollen. She said her doctor then put her on metformin and glipizide, but she said that made her swollen too, so her doctor cut her metformin dose in half. She comes in today complaining of severely increased thirst and increased urine output and was found to have a blood sugar of almost 800. She is being admitted for further control of her blood sugar. Past Medical History Cardiac Medical History: Reports: Hypertension - NO MEDS Endocrine Medical History: Reports: Diabetes Mellitus Type 2 - metformin, prescribed insulin but had a "allergic reaction" so stopped it Social History Smoking Status: Never Smoker Electronic Cigarette use?: No Family History Family History: Arthritis, CVA, DM, Hypertension, Malignancy Parental Family History Reviewed: Yes Children Family History Reviewed: Yes Sibling(s) Family History Reviewed.: Yes Medication/Allergy Home Medications: Metformin HCl [Metformin HCl ER] 500 mg PO BID 10/03/17 Glipizide [Glucotrol 5 mg Tablet] 5 mg PO DAILY #30 tablet 07/29/19 Allergies/Adverse Reactions: No Known Allergies Allergy (Verified 07/29/19 20:28) Review of Systems All systems: reviewed and no additional remarkable complaints except as stated - All systems were reviewed and were negative except as noted in the HPI Physical Exam Vital Signs: Temp Pulse Resp BP Pulse Ox 98.1 F 95 8 L 123/68 98 09/17/19 13:50 09/17/19 13:50 09/17/19 15:04 09/17/19 15:04 09/17/19 15:04 Intake & Output 09/16/19 09/17/19 09/18/19 06:59 06:59 06:59 Weight 114.1 kg General appearance: PRESENT: no acute distress, cooperative, disheveled, morbidly obese Head exam: PRESENT: atraumatic, normocephalic Eye exam: PRESENT: EOMI, PERRLA. ABSENT: conjunctival injection, nystagmus, scleral icterus Ear exam: PRESENT: normal external ear exam Mouth exam: PRESENT: dry mucosa, neck supple Throat exam: ABSENT: post pharyngeal erythema Neck exam: PRESENT: full ROM. ABSENT: carotid bruit, JVD, lymphadenopathy, meningismus, tenderness, thyromegaly Respiratory exam: PRESENT: clear to auscultation joce, symmetrical, unlabored. ABSENT: accessory muscle use, chest wall tenderness, crackles, prolonged expiratory phas, rhonchi, tachypnea, wheezes Cardiovascular exam: PRESENT: RRR, +S1, +S2 Pulses: PRESENT: normal carotid pulses Vascular exam: PRESENT: normal capillary refill GI/Abdominal exam: PRESENT: normal bowel sounds, soft. ABSENT: distended, guarding, rebound, tenderness Extremities exam: ABSENT: clubbing, pedal edema Musculoskeletal exam: PRESENT: normal inspection. ABSENT: deformity Neurological exam: PRESENT: alert, awake, oriented to person, oriented to place, oriented to time, oriented to situation, CN II-XII grossly intact. ABSENT: motor sensory deficit Psychiatric exam: PRESENT: appropriate affect, normal mood Skin exam: PRESENT: dry, warm Results Laboratory Results: 09/17/19 14:06 09/17/19 14:06 09/17/19 09/17/19 09/17/19 14:06 14:06 14:06 WBC 7.1 RBC 4.50 Hgb 13.4 Hct 39.6 MCV 88 MCH 29.8 MCHC 33.8 RDW 12.4 Plt Count 220 Seg Neutrophils % 48.9 VBG pH VBG pCO2 VBG HCO3 VBG Base Excess Sodium 127.1 L Potassium 4.8 Chloride 93 L Carbon Dioxide 20 L Anion Gap 14 BUN 12 Creatinine 0.77 Est GFR ( Amer) > 60 Glucose 797 H* Calcium 9.6 Total Bilirubin 0.5 AST 23 Alkaline Phosphatase 313 H Total Protein 7.2 Albumin 4.2 Lipase 301.1 H Urine Color STRAW Urine Appearance CLEAR Urine pH 7.0 Ur Specific [place] 1.029 Urine Protein NEGATIVE Urine Glucose (UA) >=500 H Urine Ketones NEGATIVE Urine Blood NEGATIVE Urine Nitrite NEGATIVE Ur Leukocyte Esterase NEGATIVE Urine RBC (Auto) 0 09/17/19 15:45 WBC RBC Hgb Hct MCV MCH MCHC RDW Plt Count Seg Neutrophils % VBG pH 7.38 VBG pCO2 38.8 VBG HCO3 22.3 VBG Base Excess -2.6 Sodium Potassium Chloride Carbon Dioxide Anion Gap BUN Creatinine Est GFR ( Amer) Glucose Calcium Total Bilirubin AST Alkaline Phosphatase Total Protein Albumin Lipase Urine Color Urine Appearance Urine pH Ur Specific [place] Urine Protein Urine Glucose (UA) Urine Ketones Urine Blood Urine Nitrite Ur Leukocyte Esterase Urine RBC (Auto) Assessment and Plan - Diagnosis (1) Hyperglycemia due to type 2 diabetes mellitus Qualifiers: Diabetes mellitus intermediate manager insulin use: without intermediate manager use Qualified Code(s): E11.65 - Type 2 diabetes mellitus with hyperglycemia Is this a current diagnosis for this admission?: Yes Plan: Ordering give her some insulins and some IV fluid. Keep her n.p.o. until we get her blood sugar under better control. I do not think she needs a drip at this time but if we have trouble keeping it under control with subcutaneous insulin we will have to put her on a drip. I rec ommended that she take insulin at home after she leaves the hospital at least for short period of time to try to get her blood sugar under better control and she verbalized her understanding. - Time Time Spent with patient: 35 or more minutes - Inpatient Certification Based on my medical assessment, after consideration of the patient's comorbidities, presenting symptoms, or acuity I expect that the services needed warrant INPATIENT care.: Yes I certify that my determination is in accordance with my understanding of Medicare's requirements for reasonable and necessary INPATIENT services [42 CFR 412.3e].: Yes Medical Necessity: Significant Comorbidiites Make Outpatient Treatment Too Risky, Need Close Monitoring Due to Risk of Patient Decompensation, Need For IV Fluids, Risk of Complication if Not Cared For in Hospital
[2019-09-17] MEDS: INSULIN LISPRO 100 UNIT/ML 3 ML VIAL SUBCUT SCH ×2 (20:18→23:52)
[2019-09-17] MEDS ORDERED: ACETAMINOPHEN 325 MG TABLET ONE (20:30)
[2019-09-17] MEDS: NORMAL SALINE 1000 ML 1,000 ML IV PRN (20:33)
[2019-09-17] MEDS: ACETAMINOPHEN 325 MG TABLET PO PRN (20:41)
[2019-09-17] MEDS: HEPARIN SOD (PORCINE) 5,000 UNIT/ML 1 ML VIAL SUBCUT SCH (21:13)
[2019-09-18] MEDS: ACETAMINOPHEN 325 MG TABLET PO PRN ×2 (05:44→13:52)
[2019-09-18] MEDS: HEPARIN SOD (PORCINE) 5,000 UNIT/ML 1 ML VIAL SUBCUT SCH (05:45)
[2019-09-18] MEDS: NORMAL SALINE 1000 ML 1,000 ML IV PRN (05:45)
[2019-09-18 05:53] LABS: ANION GAP 8 (5-19); BLOOD UREA NITROGEN 8 mg/dL (7-20); CALCIUM 8.7 mg/dL (8.4-10.2); CARBON DIOXIDE 21 mmol/L (22-30); CHLORIDE 107 mmol/L (98-107); GLUCOSE 222 mg/dL (75-110)
[2019-09-18] MEDS: INSULIN LISPRO 100 UNIT/ML 3 ML VIAL SUBCUT SCH ×2 (05:56→12:49)
[2019-09-18 14:29] VITALS: BP 154/88
--- NOTE | 2019-09-18 18:33 | PDOC DISCHARGE SUMMARY ---
Impression - Admit/DC Date/PCP Admission Date/Primary Care Provider: 09/17/19 17:23 Discharge Date: 09/18/19 - Discharge Diagnosis (1) Hyperglycemia due to type 2 diabetes mellitus Is this a current diagnosis for this admission?: Yes - Additional Information Resuscitation Status: Full Code Discharge Diet: Diabetic Discharge Activity: Activity As Tolerated Referrals: LOPEZ MONTAGUE MD [NO LOCAL MD] - (1-2 weeks) Prescriptions: Syringe and Needle,Insulin,1Ml [Insulin Syringe] 1 each [facility] BIDACBS #60 disp.syrin Metformin HCl [Metformin HCl ER] 500 mg PO BID #60 tab.er.24h Hum Insulin NPH/Reg Insulin Hm [Novolin 70-30 100 Unit/Ml Vial] 10 unit SQ BIDACBS #1 bottle Home Medications: Hum Insulin NPH/Reg Insulin Hm [Novolin 70-30 100 Unit/Ml Vial] 10 unit SQ BIDACBS #1 bottle 09/18/19 Metformin HCl [Metformin HCl ER] 500 mg PO BID #60 tab.er.24h 09/18/19 Syringe and Needle,Insulin,1Ml [Insulin Syringe] 1 each MC BIDACBS #60 disp.syrin 09/18/19 History of Present Illiness History of Present Illness: LOLLY LONDON is a 39 year old female with a history of diabetes who states she was taking insulin at one point but she stopped taking it because it was making her swollen. She said her doctor then put her on metformin and glipizide, but she said that made her swollen too, so her doctor cut her metformin dose in half. She comes in today complaining of severely increased thirst and increased urine output and was found to have a blood sugar of almost 800. She is being admitted for further control of her blood sugar. Hospital Course Hospital Course: She responded well to IV fluids and subcutaneous insulin. She said that insulin caused her to have swelling, and my review of the literature says that this is a fairly common phenomenon, in some cases up to 20% of patients. It is also noted to be a temporary phenomenon. I have put her on a regimen that will be easier for her to follow, Novolin 70/30 twice a day, until she can follow-up with her primary care provider in [place], at which time her regimen may be adjusted for optimization. I have recommended that she stay on metformin. She has used insulin before and knows how to draw it up and administer it. Her labs and examination were reassuring and she was discharged in good condition. Physical Exam Vital Signs: Temp Pulse Resp BP Pulse Ox 98.0 F 75 17 154/88 H 99 09/18/19 14:27 09/18/19 14:27 09/18/19 14:27 09/18/19 14:27 09/18/19 14:27 Intake & Output 09/17/19 09/18/19 09/19/19 06:59 06:59 06:59 Intake Total 3000 Balance 3000 Weight 114.2 kg General appearance: PRESENT: no acute distress, cooperative, disheveled, mor bidly obese Respiratory exam: PRESENT: clear to auscultation joce, symmetrical, unlabored. ABSENT: accessory muscle use, chest wall tenderness, crackles, prolonged expiratory phas, rhonchi, tachypnea, wheezes Cardiovascular exam: PRESENT: RRR, +S1, +S2 Pulses: PRESENT: normal carotid pulses Vascular exam: PRESENT: normal capillary refill GI/Abdominal exam: PRESENT: normal bowel sounds, soft. ABSENT: distended, guarding, rebound, tenderness Extremities exam: ABSENT: clubbing, pedal edema Musculoskeletal exam: PRESENT: normal inspection. ABSENT: deformity Neurological exam: PRESENT: alert, awake, oriented to person, oriented to place, oriented to situation Psychiatric exam: PRESENT: appropriate affect, normal mood Skin exam: PRESENT: dry, warm Results Laboratory Results: WBC 7.1 10^3/uL (4.0-10.5) 09/17/19 14:06 RBC 4.50 10^6/uL (3.72-5.28) 09/17/19 14:06 Hgb 13.4 g/dL (12.0-15.5) 09/17/19 14:06 Hct 39.6 % (36.0-47.0) 09/17/19 14:06 MCV 88 fl (80-97) 09/17/19 14:06 MCH 29.8 pg (27.0-33.4) 09/17/19 14:06 MCHC 33.8 g/dL (32.0-36.0) 09/17/19 14:06 RDW 12.4 % (11.5-14.0) 09/17/19 14:06 Plt Count 220 10^3/uL (150-450) 09/17/19 14:06 Lymph % (Auto) 38.5 % (13-45) 09/17/19 14:06 [place] % (Auto) 10.4 % (3-13) 09/17/19 14:06 Eos % (Auto) 1.0 % (0-6) 09/17/19 14:06 Baso % (Auto) 1.2 % (0-2) 09/17/19 14:06 Absolute Neuts (auto) 3.5 10^3/uL (1.7-8.2) 09/17/19 14:06 Absolute Lymphs (auto) 2.7 10^3/uL (0.5-4.7) 09/17/19 14:06 Absolute Monos (auto) 0.7 10^3/uL (0.1-1.4) 09/17/19 14:06 Absolute Eos (auto) 0.1 10^3/uL (0.0-0.6) 09/17/19 14:06 Absolute Basos (auto) 0.1 10^3/uL (0.0-0.2) 09/17/19 14:06 Seg Neutrophils % 48.9 % (42-78) 09/17/19 14:06 VBG pH 7.38 (7.30-7.42) 09/17/19 15:45 VBG pCO2 38.8 mmHg (35-63) 09/17/19 15:45 VBG HCO3 22.3 mmol/L (20-32) 09/17/19 15:45 VBG Base Excess -2.6 mmol/L 09/17/19 15:45 Sodium 136.2 mmol/L (137-145) L 09/18/19 04:39 Potassium 4.0 mmol/L (3.6-5.0) 09/18/19 04:39 Chloride 107 mmol/L (98-107) 09/18/19 04:39 Carbon Dioxide 21 mmol/L (22-30) L 09/18/19 04:39 Anion Gap 8 (5-19) 09/18/19 04:39 BUN 8 mg/dL (7-20) 09/18/19 04:39 Creatinine 0.53 mg/dL (0.52-1.25) 09/18/19 04:39 Est GFR ( Amer) > 60 (>60) 09/18/19 04:39 Est GFR (MDRD) Non-Af > 60 (>60) 09/18/19 04:39 Glucose 222 mg/dL (75-110) H 09/18/19 04:39 POC Glucose 252 mg/dL (70-110) H 09/18/19 11:41 Hemoglobin A1c % > 14.0 % (4.7-6.0) H 09/17/19 14:06 Calcium 8.7 mg/dL (8.4-10.2) 09/18/19 04:39 Total Bilirubin 0.5 mg/dL (0.2-1.3) 09/17/19 14:06 Direct Bilirubin 0.1 mg/dL (0.0-0.4) 09/17/19 14:06 Neonat Total Bilirubin Not Reportable 09/17/19 14:06 Neonat Direct Bilirubin Not Reportable 09/17/19 14:06 Neonat Indirect Bili Not Reportable 09/17/19 14:06 AST 23 U/L (14-36) 09/17/19 14:06 ALT 21 U/L (<35) 09/17/19 14:06 Alkaline Phosphatase 313 U/L (38-126) H 09/17/19 14:06 Total Protein 7.2 g/dL (6.3-8.2) 09/17/19 14:06 Albumin 4.2 g/dL (3.5-5.0) 09/17/19 14:06 Lipase 301.1 U/L (23-300) H 09/17/19 14:06 Urine Color STRAW 09/17/19 14:06 Urine Appearance CLEAR 09/17/19 14:06 Urine pH 7.0 (5.0-9.0) 09/17/19 14:06 Ur Specific [place] 1.029 09/17/19 14:06 Urine Protein NEGATIVE mg/dL (NEGATIVE) 09/17/19 14:06 Urine Glucose (UA) >=500 mg/dL (NEGATIVE) H 09/17/19 14:06 Urine Ketones NEGATIVE mg/dL (NEGATIVE) 09/17/19 14:06 Urine Blood NEGATIVE (NEGATIVE) 09/17/19 14:06 Urine Nitrite NEGATIVE (NEGATIVE) 09/17/19 14:06 Urine Bilirubin NEGATIVE (NEGATIVE) 09/17/19 14:06 Urine Urobilinogen NEGATIVE mg/dL (<2.0) 09/17/19 14:06 Ur Leukocyte Esterase NEGATIVE (NEGATIVE) 09/17/19 14:06 Urine RBC (Auto) 0 /HPF 09/17/19 14:06 Squamous Epi Cells Auto 1 /HPF 09/17/19 14:06 Urine Ascorbic Acid NEGATIVE (NEGATIVE) 09/17/19 14:06 Plan Time Spent: Greater than 30 Minutes Stroke Is this a Stroke Patient?: No Acute Heart Failure - Is this a Heart Failure Patient?: No
== END 2019-09-18 15:07 | disposition home or self-care (01) ==
LOC: ER 13:29 → EH 17:23 → OBSVTOIN 17:23 → INTOOBSV 17:23 → 4N 18:55
PROVIDERS: ADMIT Family Medicine; ATTEND Family Medicine
DX: E11.65 Type 2 diabetes mellitus with hyperglycemia (principal); E66.01 Morbid (severe) obesity due to excess calories; E87.1 Hypo-osmolality and hyponatremia; R74.8 Abnormal levels of other serum enzymes; I10 Essential (primary) hypertension; Z79.84 Long term (current) use of oral hypoglycemic drugs; Z88.8 Allergy status to other drugs, medicaments and biological substances; Z91.14 Patient's other noncompliance with medication regimen
CPT/HCPCS: 99284; 96361; 96374; 36415 ×2; 82962 ×2; 83690; 85025; 80048; 80053; 81001; 83036; 82803; G0378 ×3; J1644 ×2; J1815 ×2; J2405; J7030 ×2